=== PATIENT | male | born 1935 | race Caucasian/White ===

== ENCOUNTER 2016-11-07 05:44 | Inpatient (IN) | payer OTHER ==
--- NOTE | 2016-11-06 20:31 | GHP ---
[f rep st] PREOP HISTORY AND PHYSICAL DATE OF ADMISSION: 11/07/2016 PROBLEM: Severe left knee degenerative arthritis. HISTORY OF PRESENT ILLNESS: Jayant is an 81-year-old male who will be admitted for a left total knee arthroplasty with Dr. El at the [facility] on November 07, 2016. The patient has had progressive pain of the left knee for several years. Within the last few months, he has had an increase in pain as well as a sense of instability and buckling. The knee is sore with prolonged sitting or standing. He uses a crutch in his left hand because of poor balance. He has tried self-directed physical therapy exercises for the left knee in addition to anti-inflammatories, which have not helped. Because of his progressive pain and advanced arthritis, the patient has elected to proceed with a left total knee arthroplasty. 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 He also has peripheral neuropathy on the left side of his lower extremity. PAST MEDICAL HISTORY: Pertinent for hypercholesterolemia and hypertension. 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 Chronic oral antibiotic use for previous osteomyelitis. No history of DVT, PE, OK, CAD or hepatitis. No previous MRSA infection. CURRENT MEDICATIONS: Baclofen 10 mg, gabapentin 300 mg, metoprolol succinate ER 50 mg, simvastatin 40 mg, calcium, multivitamin, fish oil, and dicloxacillin 500 mg 4 times a day. ALLERGIES: He has no known drug allergies. SOCIAL HISTORY: The patient is . He is a former smoker. He is retired from [employer]. Occasional alcohol intake. FAMILY HISTORY: Pertinent for coronary artery disease and heart attacks. PHYSICAL EXAMINATION: GENERAL: He is a healthy-appearing 81-year-old male. VITAL SIGNS: Height 5 feet 8 inches tall, weight 210 pounds. BMI 31.9. HEENT : Head is normocephalic, atraumatic. Eyes are PERRLA. Conjunctivae and sclerae are clear. Mouth: He has good oral hygiene without any loose teeth. LUNGS: Clear. HEART: Regular rate and rhythm without gallops or rubs. He does have a grade 2/6 systolic murmur heard best at the right upper sternal border. EXTREMITIES: Pertinent findings are limited to the patient's left knee. He has valgus alignment, full knee extension, 105 degrees of flexion, pseudolaxity of the lateral collateral ligament. DIAGNOSTIC IMAGING: Recent x-rays taken of the patient's left knee shows advanced uaxv-wj-veay degenerative arthritis with increased subchondral sclerosis and peripheral osteophyte formation. IMPRESSION: On admission: 1. Advanced left knee degenerative arthritis. 2. Status post right total knee arthroplasty with a good result. 3. History of cervical spine fusion x2 with residual partial right-sided paralysis. 4. Treated hypercholesterolemia. 5. Chronic oral antibiotic use for previous infection. PLAN: The plan will be for the patient to undergo a left total knee arthroplasty with Dr. El at the [facility] on November 07, 2016. The surgery has been described to the patient including the risks, benefits, and expectations. He understands the risk of infection, nerve injury , or blood vessel injury. He also understands the risk of heart attack, DVT, PE or . All his questions have been answered. He consents to surgery here in the office today. /[id number]/MODL MTDD
[2016-11-07] MEDS ORDERED: TRANEXAMIC ACID 900 MG in NS 100 ML IV ONE (06:00)
[2016-11-07] MEDS ORDERED: ROPIVACAINE 0.2% 80 MG, EPINEPHrine 0.2 MG, KETOROLAC TROMETHAMINE 30 MG in BAG 0 ML IU ONE (06:00)
[2016-11-07] MEDS ORDERED: POVIDONE-IODINE 20 ML in SODIUM CL IRRIG SOLUTION 500 ML IRR ONE (06:00)
[2016-11-07] MEDS ORDERED: ceFAZolin 2 GM/DEXTROSE 100 ML IV ONE (06:02)
[2016-11-07] MEDS ORDERED: ACETAMINOPHEN 325 MG TAB PO ONE (06:02)
[2016-11-07] MEDS ORDERED: DEXAMETHASONE 4 MG/ML VIAL IVP ONE (06:02)
[2016-11-07] MEDS ORDERED: FAMOTIDINE 20 MG TAB PO ONE (06:02)
[2016-11-07] MEDS ORDERED: DEXAMETHASONE 4 MG/ML VIAL ONE ×2 (06:31→09:12)
[2016-11-07] MEDS ORDERED: CEFAZOLIN 2 GM/DEXTROSE/100 ML BAG IV ONE (06:31)
[2016-11-07] MEDS ORDERED: FAMOTIDINE 20 MG TAB ONE (06:31)
[2016-11-07] MEDS ORDERED: ACETAMINOPHEN 325 MG TAB ONE (06:31)
[2016-11-07] MEDS ORDERED: ceFAZolin 1 GM/5 ML SYR ONE ×2 (06:32→06:35)
[2016-11-07] MEDS ORDERED: VANCOMYCIN 1 GM VIAL ONE ×2 (06:32→06:35)
[2016-11-07] MEDS ORDERED: LIDOCAINE 1% 2 ML INJ ID PRN (06:43)
[2016-11-07] MEDS ORDERED: LR 1,000 ML IV ONE (06:43)
[2016-11-07 07:05] LABS: % IMMATURE GRANULYOCYTES 0.3 % (0.0-1.1); ABSOLUTE IMMATURE GRANULOCYTES 0.02 10^3/uL (0.00-0.10); ADD DIFF? NO; ADD MORPH? NO; ADD SCAN? NO; ATYPICAL LYMPHOCYTE FLAG 0 (0-99); FRAGMENT RBC FLAG 0 (0-99); HEMATOCRIT 35.7 % (40.0-51.0); HEMOGLOBIN 11.7 g/dL (13.7-17.5); LEFT SHIFT FLG 0 (0-99); LIPEMIA HEMOLYSIS FLAG 80 (0-99); MEAN CELL HEMOGLOBIN CONCENTR. 32.8 g/dL (32.4-36.7); MEAN CELL VOLUME 94.4 fL (81.5-99.8); MEAN PLATELET VOLUME 10.7 fL (8.7-11.7); PLATELET CLUMPS FLAG 0 (0-99); PLATELET COUNT 205 10^3/uL (150-400); RED BLOOD CELL COUNT 3.78 10^6/uL (4.40-6.38); RED CELL DISTRIBUTION WIDTH 13.2 % (11.5-15.2)
--- NOTE | 2016-11-07 07:08 | PDHPUP ---
History & Physical Update H&P update statement: This history and physical update is based on an assessment of the patient which was completed after admission or registration (within 24 hours), but prior to the surgery/procedure. H&P update: H&P reviewed & patient examined, no change in patient's condition since H&P completed
[2016-11-07] MEDS ORDERED: MIDAZOLAM 2 MG/2 ML VIAL ONE (07:10)
[2016-11-07] MEDS ORDERED: PROPOFOL/EMULSION 500 MG/50 ML BOTTLE IV ONE ×2 (07:14→08:31)
[2016-11-07] MEDS ORDERED: PROPOFOL 200 MG/20 ML VIAL ONE (07:15)
[2016-11-07] MEDS ORDERED: HYDROmorphONE/DILAUDID 2 MG/ML INJ ONE (07:47)
[2016-11-07] MEDS ORDERED: NALOXONE HCL 0.4 MG/ML INJ IVP PRN (08:33)
[2016-11-07] MEDS ORDERED: ONDANSETRON 4 MG/2 ML VIAL IVP PRN ×2 (08:33→09:19)
[2016-11-07] MEDS ORDERED: HYDROmorphONE/DILAUDID 1 MG/ML SYR IVP PRN ×2 (08:33)
[2016-11-07] MEDS ORDERED: LR 500 ML IV PRN (08:33)
[2016-11-07] MEDS ORDERED: fentaNYL 100 MCG/2 ML INJ IVP PRN ×2 (08:33)
[2016-11-07] MEDS ORDERED: MIDAZOLAM 2 MG/2 ML VIAL IVP ONE (08:38)
--- NOTE | 2016-11-07 08:38 | PDANEPAE ---
ANE History of Present Illness 87yo M for L TKA ANE Past Medical History - Cardiovascular History Hx Hypertension: Yes Hx Arrhythmias: No Hx Chest Pain: No Hx Coronary Artery / Peripheral Vascular Disease: No Hx CHF / Valvular Disease: No Hx Palpitations: No Cardiovascular History Comment: pcp monitors bp meds. hyperlipidemia - Pulmonary History Hx COPD: No Hx Asthma/Reactive Airway Disease: No Hx Recent Upper Respiratory Infection: No Hx Oxygen in Use at Home: No Hx Sleep Apnea: No Sleep Apnea Screening Result - Last Documented: Positive Pulmonary History Comment: suni positive- hx of using cpap but he has since stopped - Neurologic History Hx Cerebrovascular Accident: No Hx Seizures: No Hx Dementia: No Neurologic History Comment: paralysis to right side after spinal surgery. spinal surgery for numbness and tingling in left hand- when he woke up from anesthesia he was totally paralyzed on right side. neuropathy on left side from toes to armpit - Endocrine History Hx Diabetes: No - Renal History Hx Renal Disorders: Yes Renal History Comment: frequency and urgency- pt and requesting catheter. uti 2 weeks ago - Liver History Hx Hepatic Disorders: No - Neurological & Psychiatric Hx Hx Neurological and Psychiatric Disorders: No - Cancer History Hx Cancer: No - Congenital Disorder History Hx Congenital Disorders: No - GI History Hx Gastrointestinal Disorders: Yes Gastrointestinal History Comment: diarrhea uses probiotic. occ incontinence of bowels d/t paralysis - Other Health History Other Health History: wears glasses. bilateral hearing aides. hx of eczema- none currently. flu 2 weeks ago - Chronic Pain History Chronic Pain: Yes (left knee, wrist, right shoulder and low back pain) - Surgical History Prior Surgeries: c2 spinal surgery for calcium spur 08/2006. right tka 2009. herniated disc procedure after water slide accident ANE Review of Systems Review of systems is: negative - Exercise capacity Exercise capacity: limited by disability METS (RN): 4 METS ANE Patient History - Allergies Allergies/Adverse Reactions: No Known Allergies Allergy (Verified 11/05/16 12:24) - Home Medications Home Medications: Aspirin [Aspirin 81mg (*)] 81 mg PO DAILY 10/31/16 [Last Taken 11/05/16] Baclofen [Baclofen 10 mg (*)] 10 mg PO BID 10/31/16 [Last Taken 11/06/16 23:00] Dicloxacillin Sodium [Dynapen 500 MG (*)] 500 mg PO Q6H 10/31/16 [Last Taken 04/14 05:00] Gabapentin [Neurontin 300 MG (*)] 300 mg PO BID 10/31/16 [Last Taken 11/06/16 23 :00] Metoprolol Succinate Xr [Toprol Xl 50 mg (*)] 50 mg PO DAILY 10/31/16 [Last Taken 11/06/16 11:00] Simvastatin [Zocor] 40 mg PO DAILY 10/31/16 [Last Taken 11/06/16 11:00] - NPO status NPO Since - Liquids (Date): 11/06/16 NPO Since - Liquids (Time): 20:00 NPO Since - Solids (Date): 11/06/16 NPO Since - Solids (Time): 22:30 - Smoking Hx Smoking Status: Former smoker - Family Anes Hx Family Hx Anesthesia Complications: none ANE Labs/Vital Signs - Labs Result Diagrams: 11/07/16 06:55 - Vital Signs Blood Pressure: 132/73 Heart Rate: 66 Respiratory Rate: 16 O2 Sat (%): 90 Height: 167.64 cm Weight: 85.275 kg ANE Physical Exam - Airway Neck exam: decreased ROM Mallampati Score: Class 2 Mouth exam: normal dental/mouth exam - Pulmonary Pulmonary: clear to auscultation - Cardiovascular Cardiovascular: regular rate and rhythym - ASA Status ASA Status: III ANE Anesthesia Plan Anesthesia Plan: spinal Regional Anesthesia: single shot NB, adductor canal FNB
--- NOTE | 2016-11-07 09:11 | POSTOPPROG ---
Post Op Note Date of Operation: 11/07/16 Surgeon: Omar El Orthopedic Tech: León Bentley Anesthesiologist: Collette Anesthesia: GET(General Endotracheal) Post-op Diagnosis: Left knee severe degenerative arthritis. Procedure: Left total knee arthroplasty. Inf/Abcess present in the surg proc area at time of surgery?: No EBL: 50-100 (Adductor canal block.)
[2016-11-07] MEDS ORDERED: epHEDrine SULFATE 10 MG/ML SYR ONE (09:12)
[2016-11-07] MEDS ORDERED: ONDANSETRON 4 MG/2 ML VIAL ONE (09:13)
[2016-11-07] MEDS ORDERED: PHARMACY PAIN CONSULT 1 EA MISC PRN (09:19)
[2016-11-07] MEDS ORDERED: oxyCODONE IR 5 MG TAB PO PRN (09:19)
[2016-11-07] MEDS ORDERED: POLYETHYLENE GLYCOL 3350 17 GM PKT PO PRN (09:19)
[2016-11-07] MEDS ORDERED: DIPHENOXYLATE/ATROPINE LOMOTIL 1 TAB PO PRN (09:19)
[2016-11-07] MEDS ORDERED: NS 500 ML IV PRN (09:19)
[2016-11-07] MEDS ORDERED: KETOROLAC 30 MG/1 ML SDV IVP PRN (09:19)
[2016-11-07] MEDS ORDERED: BISACODYL 10 MG SUPP PR PRN (09:19)
[2016-11-07] MEDS ORDERED: MAGNESIUM HYDROXIDE 30 ML UDCUP PO PRN (09:19)
[2016-11-07] MEDS ORDERED: TEMAZEPAM 15 MG CAP PO PRN (09:19)
[2016-11-07] MEDS ORDERED: PROMETHAZINE HCL 25 MG SUPPR PR PRN (09:19)
[2016-11-07] MEDS ORDERED: LACTULOSE 20 GM/30 ML UDCUP PO PRN (09:19)
[2016-11-07] MEDS ORDERED: PROMETHAZINE HCL 25 MG/ML INJ IVP PRN (09:19)
[2016-11-07] MEDS ORDERED: diphenhydrAMINE 25 MG CAP PO PRN (09:19)
[2016-11-07] MEDS ORDERED: traMADol 50 MG TAB PO PRN (09:19)
[2016-11-07] MEDS ORDERED: METOCLOPRAMIDE 10 MG/2 ML VIAL IVP PRN (09:19)
[2016-11-07] MEDS ORDERED: ONDANSETRON DISINTEGRATING 4 MG TAB PO PRN (09:19)
[2016-11-07] MEDS ORDERED: CYCLOBENZAPRINE 10 MG TAB PO PRN (09:19)
[2016-11-07] MEDS ORDERED: LR 1,000 ML IV SCH (09:30)
[2016-11-07] MEDS: DICLOXACILLIN NA 500 MG CAP PO SCH ×2 (12:02→17:30)
[2016-11-07] MEDS: ATORVASTATIN CALCIUM 20 MG TAB PO SCH (12:02)
[2016-11-07] MEDS: ACETAMINOPHEN 325 MG TAB PO SCH ×2 (12:02→17:30)
[2016-11-07] MEDS: METOPROLOL SUCCINATE XR 50 MG TAB PO SCH (12:03)
[2016-11-07] MEDS: ceFAZolin 2 GM/DEXTROSE 100 ML IV SCH ×2 (14:39→21:11)
[2016-11-07] MEDS: TRANEXAMIC ACID 650 MG TAB PO SCH (17:30)
--- NOTE | 2016-11-07 18:14 | GOP ---
[f rep st] OPERATIVE REPORT DATE OF OPERATION: 11/07/2016 SURGEON: Omar El MD MANAGER PHARMACEUTICAL: 1. Marcello Bejarano P.A.-C. 2. Sebastian Bentley CFA. ANESTHESIA: General. ANESTHESIOLOGIST: Dr. Martin Murdock. PREOPERATIVE DIAGNOSIS: Left knee severe degenerative arthritis with valgus deformity. POSTOPERATIVE DIAGNOSIS: Left knee severe degenerative arthritis with valgus deformity. PROCEDURE PERFORMED: Left total knee arthroplasty, cemented, Gould and Nephew Journey II, posterior stabilized. FINDINGS: ESTIMATED BLOOD LOSS: Following placement of the tourniquet, was about 100 mL. The sponge and needle count were correct on 2 occasions. He was awakened from anesthesia, transferred to his hospital [facility] and taken to the PACU in satisfa ctory condition. There were no intraoperative complications. In the PACU, for additional postoperative pain control, Dr. Murdock performed an adductor canal block. Marcello Bejarano and Sebastian Bentley acted as surgical assistants. Their assistance was a medical rosa bob. DESCRIPTION OF PROCEDURE: The patient was given 2 g of preoperative IV Ancef within 60 minutes of s urgery. He also received IV tranexamic acid at a dose of 10 mg/kg. He was placed on the operating room table and Dr. Murdock attempted a spinal anesthetic, but was unsuccessful. He was then placed mike pine and given general anesthesia. He wore a YVETTE stocking and SCD on the nonoperative leg. A bolst er was placed under the left hip to prevent excessive external rotation. The left lower extremity w as prepped with ChloraPrep from the upper thigh tourniquet to the tips of the toes. It was draped f ree using sterile sheets, stockinette, and Ioban plastic adhesive drape. The lower leg was wrapped with compressive Coban. The leg was exsanguinated with elevation and a 6-inch compressive wrap, and the pneumatic tourniquet was inflated to 250 mmHg. The World Health Organization time-out was perf ormed to verify the correct patient identity and the correct surgical side and site. The Shayan ti me-out was also performed. The DeMayo leg holding device was sterilely attached to the operating ro om table and used throughout the procedure to help position the knee. A straight midline incision was made centered on the patella. Subcutaneous tissues were sharply div ided and hemostasis was obtained using electrocautery. A medial subcutaneous flap was developed, an d the capsule and synovium were opened in medial parapatellar fashion. Extensive degenerative rivera es were present in all 3 compartments. The medial capsule and periosteum were elevated off the rim of the medial tibial plateau all the way around to the posteromedial corner. His medial collateral ligament was released enough to balance the medial side of the knee. In order to improve exposure, his patella was prepared first. The original thickness of the patella was measured. Peripheral osteophytes were removed. I cut a f lat surface on the back of the patella. He was sized for a 38 mm resurfacing component. I removed enough bone from the patella such that the remaining bone plus the thickness of the patellar compone nt recreated the original thickness of the patella. His composite thickness was 24 mm. The intramedullary alignment guide system was used to set up the distal femoral cut. The distal fem ur was cut in 5 degrees of valgus. I made a +2 mm cut on the distal femur. The sizing jig was used to determine proper femoral sizing. He was a true size 5 without shifting the cutting block. The 5 in 1 cutting block was applied, and the anterior and posterior condylar cuts and chamfer cuts were made. The final jig was used to remove the central portion of the distal femur to accommodate the posterior stabilized femoral component. I was careful to determine proper rotation by referencing o ff Whitesides line. Each cut was checked for accuracy before and after it was made. The femur was sized for a size 5 posterior stabilized component. The trial component was tapped securely into deisy ce and was a good fit. Next, the tibia was prepared. The proximal tibial cut was made using the extramedullary alignment g uide system. The cut was made in a few degrees of posterior slope. I was careful to achieve proper varus and valgus alignment and proper rotation. The posterior compartment was cleared of meniscal remnants. Osteophytes were removed from the back of the femoral condyles. I checked the flexion an d extension gaps, and they were equal, balanced and rectangular. The tibia was sized for a size 5 c omponent. With the trial components in place, I selected a 9 mm polyethylene posterior stabilized t ibial insert. The knee came to full extension and flexed to 125 degrees. There was no overstuffing in flexion. The collateral ligaments were stable and balanced in 90 degrees of flexion and full ex tension. The trial patellar button was applied and tracking was checked. Tracking was excellent wi thout any digital pressure. 40 mL of the joint anesthetic cocktail were injected into the posterior capsule, the periarticular structures, the quadriceps muscle and tendon areas, and the subcutaneous tissues along the skin edges. A second dose of IV tranexamic acid was given at a dose of 10 mg/kg. The surfaces were prepared for cementing. They were carefully cleaned with the pulsating lavage irr igation and thoroughly dried. The CarboJet device was used to blow dry the cancellous surfaces. A double batch of high viscosity methylmethacrylate cement with 2 g of powdered vancomycin added was m ixed. While it was still in a semi liquid state, all 3 components were cemented in place. Excess c ement was removed before it hardened. The 9 mm trial tibial insert was re-tried and was the proper thickness. The actual component was inserted and locked into place. The knee was thoroughly irriga yvette one final time with a dilute Betadine solution. The tourniquet was deflated. Total tourniquet time was 49 minutes. The vastus medialis portion of the extensor mechanism was repaired with several interrupted [id number] #2 FiberWire sutures. The capsule and synovium were closed first with multiple interrupted [id number] 0 PDS sutures, followed by a running #2 barbed Ethicon Stratafix PDO suture. Subcutaneous tissues were closed with a running 0 barbed Ethicon Stratafix Monoderm suture. The skin was closed with a running 3-0 barbe d Ethicon Stratafix Monoderm subcuticular suture. The skin was sealed with half-inch Steri-Strips. The wound was covered with Xeroform gauze and flat 4x4s, and the knee was wrapped with a Kerlix and 6-inch compressive wrap. A long-leg YVETTE stocking and SCD were applied followed by the cooling treasure ce. The patient wore a stocking and SCD on the opposite leg during the procedure. I used a size 5 cemented Gould and Nephew Oxinium posterior stabilized femoral component, a size 5 c emented tibial base plate, a 9 mm posterior stabilized tibial insert and a 38 mm cemented round all- polyethylene resurfacing patellar component. /[id number]/MODL
[2016-11-07] MEDS ORDERED: BACLOFEN 10 MG TAB PO SCH (21:00)
[2016-11-07] MEDS ORDERED: GABAPENTIN 300 MG CAP PO SCH (21:00)
[2016-11-07] MEDS: GABAPENTIN 300 MG CAP PO SCH (21:10)
[2016-11-07] MEDS: BACLOFEN 10 MG TAB PO SCH (21:10)
[2016-11-07] MEDS: ASPIRIN 325 MG TAB PO SCH (21:11)
[2016-11-07] MEDS: FAMOTIDINE 20 MG TAB PO SCH (21:11)
[2016-11-07] MEDS: SENNOSIDES/DOCUSATE SODIUM TAB PO SCH (21:13)
[2016-11-08] MEDS: BACLOFEN 10 MG TAB PO SCH ×3 (00:11→22:05)
[2016-11-08] MEDS: ACETAMINOPHEN 325 MG TAB PO SCH ×4 (00:11→17:50)
[2016-11-08] MEDS: GABAPENTIN 300 MG CAP PO SCH ×3 (00:11→22:05)
[2016-11-08] MEDS: TRANEXAMIC ACID 650 MG TAB PO SCH ×2 (00:11→09:00)
[2016-11-08] MEDS: DICLOXACILLIN NA 500 MG CAP PO SCH ×4 (00:11→17:50)
[2016-11-08 04:51] LABS: HEMATOCRIT 31.3 % (40.0-51.0); HEMOGLOBIN 10.3 g/dL (13.7-17.5)
--- NOTE | 2016-11-08 07:51 | SOAPPROG ---
SOAP Progress Note Assessment/Plan: Assessment: Awake and alert. Minimal pain. He has been up and walking in the room. His dressing is dry. H&H is good. Films look good. Plan: Standing long-leg alignment film today. Continue physical therapy. Discharge later today when cleared by physical therapy. 11/08/16 07:49 Objective: Vital Signs Temp Pulse Resp BP Pulse Ox 37.1 C 79 14 138/59 H 92 11/08/16 07:17 11/08/16 07:17 11/08/16 07:17 11/08/16 07:17 11/08/16 07:17 Laboratory Results 11/08/16 04:29 11/07/16 11/08/16 11/09/16 05:59 05:59 05:59 Intake Total 600 Output Total 345 Balance 255 ICD10 Worksheet Patient Problems: Problems Problem Status Onset Osteoarthritis of left knee Acute
--- NOTE | 2016-11-08 07:55 | PDIAF ---
- Diagnosis Diagnosis: left knee OA Code Status: Full Code - Medication Management Discharge Medications: Medications to Continue on Transfer Baclofen [Baclofen 10 mg (*)] 10 mg PO BID 10/31/16 [Last Taken 11/06/16 23:00] Dicloxacillin Sodium [Dynapen 500 MG (*)] 500 mg PO Q6H 10/31/16 [Last Taken 04/14 05:00] Gabapentin [Neurontin 300 MG (*)] 300 mg PO BID 10/31/16 [Last Taken 11/06/16 23 :00] Metoprolol Succinate Xr [Toprol Xl 50 mg (*)] 50 mg PO DAILY 10/31/16 [Last Taken 11/06/16 11:00] Simvastatin [Zocor] 40 mg PO DAILY 10/31/16 [Last Taken 11/06/16 11:00] Acetaminophen [Tylenol 325mg (*)] 650 mg PO Q6HRS #0 tab 11/08/16 [Last Taken Unknown] Aspirin [Aspirin 325 mg (*)] 325 mg PO DAILY #21 tab 11/08/16 [Last Taken Unknown] Ferrous Sulfate [Slow Fe 140 MG (*)] 140 mg PO DAILY #30 tab.er 11/08/16 [Last Taken Unknown] Ondansetron Odt [Zofran Odt 4 mg (*)] 4 mg PO Q4HRS PRN #0 tab 11/08/16 [Last Taken Unknown] oxyCODONE IR [Oxycodone Ir (*)] 5 - 10 mg PO Q3HRS PRN #0 tab 11/08/16 [Last Taken Unknown] traMADol [Ultram 50 mg (*)] 50 mg PO Q6HRS PRN #0 tab 11/08/16 [Last Taken Unknown] Discharge Medications: Refer to the Discharge Home Medication list for PRN reason. - Orders Services needed: Home Care, Physical Therapy Home Care Face to Face: I certify that this patient was under my care and that I had the required [id number] encounter meeting the encounter requirements on the discharge day. My findings support the fact that the patient is homebound as defined in CMS Chapter 7 Medicare Benefits Manual 30.1.1, The condition of the patient is such that there exists a normal inability to leave home and consequently, leaving home would require a considerable and taxing effort. Diet Recommendation: no restrictions on diet Diet Texture: Regular Texture Diet Bosch: Not applicable Grant Stockings Discontinue Date: 1 week Wound Care Instructions: keep clean and dry. You may shower. Equipment: Zero knee while in bed. - Follow Up Care Current Providers and Referrals: Dontae Ferguson MD [Primary Care Provider] - Omar El MD [Medical Doctor] - follow up in 10 days
[2016-11-08] MEDS: ASPIRIN 325 MG TAB PO SCH (09:02)
[2016-11-08] MEDS: METOPROLOL SUCCINATE XR 50 MG TAB PO SCH (09:02)
[2016-11-08] MEDS: SENNOSIDES/DOCUSATE SODIUM TAB PO SCH ×2 (09:02→22:06)
[2016-11-08] MEDS: FERROUS SULFATE 140 MG TAB.ER PO SCH (09:02)
[2016-11-08] MEDS: ATORVASTATIN CALCIUM 20 MG TAB PO SCH (09:03)
[2016-11-08] MEDS: FAMOTIDINE 20 MG TAB PO SCH ×2 (09:08→22:05)
[2016-11-08] MEDS ORDERED: NS 500 ML IV PRN (11:43)
--- NOTE | 2016-11-08 15:42 | GDS ---
[f rep st] DISCHARGE SUMMARY ADMITTING DIAGNOSIS: Left knee severe degenerative arthritis. DISCHARGE DIAGNOSIS: Left knee severe degenerative arthritis. OPERATION PERFORMED: On 11/07/2016, left total knee arthroplasty. POSTOPERATIVE COMPLICATIONS: None. CONDITION ON DISCHARGE: Improved. DESCRIPTION OF HOSPITAL COURSE: The patient was admitted to the hospital on the morning of surgery. His admission H and H were 11.7 and 35.7, and platelet count was 205,000. The same day, under general anesthesia and adductor canal block, he underwent a left total knee arthroplasty. Postoperatively, he was treated with multimodal DVT prophylaxis, including aspirin. On the first postoperative day, his hemoglobin and hematocrit were 10.3 and 31.3. He was seen by Physical Therapy. His initial progress was slow and he needed to stay an additional day in the hospital. By the time of discharge, he was afebrile and was independent walking. DISPOSITION: The patient is discharged to his home. DISCHARGE INSTRUCTIONS: He will have home physical therapy. I will see him back in the office in 10 days. Continue aspirin 325 mg p.o. daily for 21 days. Continue YVETTE stockings for 1 week. He may weight bear as tolerated on the left. Call for any problems. /[id number]/MODL MTDD
[2016-11-09] MEDS: DICLOXACILLIN NA 500 MG CAP PO SCH ×3 (00:01→12:58)
[2016-11-09] MEDS: ACETAMINOPHEN 325 MG TAB PO SCH ×3 (00:01→12:58)
[2016-11-09 03:04] VITALS: RESP 16
[2016-11-09 07:55] VITALS: BP 133/69; PULSE 77; TEMP 98.6; O2SAT 95
[2016-11-09] MEDS: FAMOTIDINE 20 MG TAB PO SCH (09:19)
[2016-11-09] MEDS: FERROUS SULFATE 140 MG TAB.ER PO SCH (09:19)
[2016-11-09] MEDS: ASPIRIN 325 MG TAB PO SCH (09:19)
[2016-11-09] MEDS: METOPROLOL SUCCINATE XR 50 MG TAB PO SCH ×2 (09:20→09:26)
[2016-11-09] MEDS: ATORVASTATIN CALCIUM 20 MG TAB PO SCH (09:21)
[2016-11-09] MEDS: SENNOSIDES/DOCUSATE SODIUM TAB PO SCH (09:24)
--- NOTE | 2016-11-09 13:45 | SOAPPROG ---
SOAP Progress Note Assessment/Plan: Assessment: POD #2, s/p L TKA Awake, alert, afebrile. H/H ok. Dressing clean and dry. Mild to no pain. OOB w/ PT. Plan: D/c to home with home PT. ASA 325mg daily x 21 days. F/u in office as scheduled. 11/09/16 13:44 Objective: Vital Signs Temp Pulse Resp BP Pulse Ox 37.0 C 77 16 133/69 H 95 11/09/16 07:53 11/09/16 07:53 11/09/16 07:53 11/09/16 07:53 11/09/16 07:53 Laboratory Results 11/08/16 04:29 11/08/16 11/09/16 11/10/16 05:59 05:59 05:59 Intake Total 600 350 Output Total 345 1050 250 Balance 251 -700 -250 ICD10 Worksheet Patient Problems: Problems Problem Status Onset Osteoarthritis of left knee Acute
== END 2016-11-09 14:41 | disposition home health service (06) | DRG 470 ==
LOC: F3N 05:44
PROVIDERS: ADMIT Orthopaedic Surgery; ATTEND Orthopaedic Surgery
PROC: 0SRD0J9 Replacement of Left Knee Joint with Synthetic Substitute, Cemented, Open Approach (ICD-10-PCS; principal; 2016-11-07 07:15)
DX: M17.12 Unilateral primary osteoarthritis, left knee (principal); G82.20 Paraplegia, unspecified; M21.062 Valgus deformity, not elsewhere classified, left knee; E78.00 Pure hypercholesterolemia, unspecified; I10 Essential (primary) hypertension; G60.8 Other hereditary and idiopathic neuropathies; Z96.651 Presence of right artificial knee joint; Z98.1 Arthrodesis status
CPT/HCPCS: 97116-GP; 97161-GP; 97166-GO; 97535-GO; C1713; G8978-GP-CJ; G8979-GP-CI; G8980-GP-CJ; G8987-GO-CK; G8988-GO-CI; J0171; J0690; J1100; J1170; J1885; J2250; J2405; J2704; J2795; J3370

== ENCOUNTER 2016-11-13 13:51 | Observation (INO) | payer OTHER ==
[2016-11-13] MEDS ORDERED: NS 1,000 ML IV ONE (13:55)
--- NOTE | 2016-11-13 13:58 | CPEKG ---
Heart Rate: 61 RR Interval: 984 P-R Interval: 168 QRSD Interval: 118 QT Interval: 432 QTC Interval: 435 P [place]: 60 QRS [place]: -43 T Wave [place]: 64 EKG Severity - ABNORMAL ECG - EKG Impression: SINUS RHYTHM EKG Impression: NONSPECIFIC IVCD WITH LAD Electronically Signed By: Rolo Flores 14-Nov-2016 07:48:40
--- NOTE | 2016-11-13 14:00 | EDPHY ---
H & P Stated Complaint: multiple syncopes HPI/ROS: HPI CHIEF COMPLAINT: Syncope x2 HISTORY OF PRESENT ILLNESS: This patient 81-year-old male, presents emergency room by EMS after he had a syncopal episode on the toilet. His witnessed this. Positive LOC. She called 911. When EMS arrived they found him sitting on the toilet diaphoretic and then he proceeded to have another syncopal episode where he was unconscious for 10-15 seconds. Patient reports that he woke up this morning feeling fatigued and weak all over. Denies chest pain or shortness of breath. States he recently had left knee surgery by Dr. El. No history of DVT or PE. No history of IL. He denies chest pain or shortness of breath. Upon arrival here in the emergency room he is mentating appropriately. His vital signs are stable. He tells me his only complaint is global weakness. Of note upon arrival vital signs are stable however room air saturation 85%. 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 Past Surgical History: Previous right knee surgery, left knee surgery this last week Social History: Denies daily use of drugs alcohol tobacco products. Family History: Noncontributory ROS REVIEW OF SYSTEMS: A comprehensive 10 point review of systems is otherwise negative aside from elements mentioned in the history of present illness. Exam Constitutional appears well nontoxic, triage nursing summary reviewed, vital signs reviewed, awake/alert. Eyes normal conjunctivae and sclera, EOMI, PERRLA. HENT normal inspection, atraumatic, moist mucus membranes, no epistaxis, neck supple/ no meningismus, no raccoon eyes. Respiratory clear to auscultation bilaterally, normal breath sounds, no respiratory distress, no wheezing. Cardiovascular rate normal, regular rhythm, no murmur, no edema, distal pulses normal. Gastrointestinal soft, non-tender, no rebound, no guarding, normal bowel sounds, no distension, no pulsatile mass. Genitourinary no CVA tenderness. Musculoskeletal left leg: Left knee recent incision, no signs of infection. no midline vertebral tenderness, full range of motion, no calf swelling, no tenderness of extremities, no meningismus, good pulses, neurovascularly intact. Skin pink, warm, & dry, no rash, skin atraumatic. Neurologic awake, alert and oriented x 3, AAOx3, moves all 4 extremities equally, motor intact, sensory intact, CN II-XII intact, normal cerebellar, normal vision, normal speech. Psychiatric normal mood/affect. Heme/Lymph/Immune no lymphadenopathy. Differential Diagnosis: Includes but is not limited to in a particular order pulmonary embolism, ACS, cardiac arrhythmia, sepsis, dehydration, vasovagal syncope Medical Decision Making: Plan for this patient he is brought into ER room 2. 2 IVs will be established patient received a fluid bolus, he will have an EKG full bus monitor, D-dimer. Due to his recent surgery, hypoxia, syncope he will need a CT angiogram of his chest rule out pulmonary embolism versus dissection. Re-evaluation: EKG interpretation by me on record in [facility] [facility] system. Time of EKG 1356, this is sinus rhythm rate of 61 hyperacute T-waves seen in the precordial leads , ST depression seen in V4 V5 V6. Very subtle ST elevation in v2. No old EKG to compare this to. EKG interpretation by me on record in [facility] system. Impression time of EKG 1432 this is sinus rhythm rate of 61, no acute ischemic change. 1517: Patient remained stable. Hemodynamically. No chest pain or shortness of breath. Blood work has been reviewed positive D-dimer. Elevated BNP. Negative troponin. No chest pain or shortness of breath at this time. Patient is back from CT angiogram of the chest to rule out pulmonary embolism. Patient need to be admitted due to [address] angiogram results. 1552: Patient remained stable no acute distress. No chest pain shortness of breath. CT scan of the chest with IV contrast angiogram The results of the study are negative for pulmonary embolism however there is visible pancreatic tail mass which I will update the patient on. This will need further workup.. The study was read by Dr. Flores. I viewed the images myself on the PACS system. 1552: Spoke with Dr. Palma who accepts the admission. Reason for admission is syncope x2 with recent surgery. Troponin negative. The ST depression seen on the 1st EKG in V5 V6 has improved on his 2nd EKG. He has no chest pain. Hemodynamically stable. Will need to be admitted the hospital for syncope x2 and further evaluation of his pancreatic tail mass. I have updated the patient about this. Source: Patient - Personal History Current Tetanus/Diphtheria Vaccine: Unsure Current Tetanus Diphtheria and Acellular Pertussis (TDAP): Unsure - Medical/Surgical History Hx Asthma: No Hx Chronic Respiratory Disease: No Hx Diabetes: No Hx Cardiac Disease: No Hx Renal Disease: No Hx Cirrhosis: No Hx Alcoholism: No Hx HIV/AIDS: No Hx Splenectomy or Spleen Trauma: No Other PMH: Cervical surgery w/resulting R side paralysis, LLE neuropathy, high chol, HTN, former smoker, sl apnea, R TKA 2010, frequency/urgency urination - Social History Smoking Status: Former smoker Constitutional: Initial Vital Signs Temperature (C) 36.4 C 11/13/16 13:54 Heart Rate 63 11/13/16 13:54 Respiratory Rate 15 11/13/16 13:54 Blood Pressure 114/69 11/13/16 13:54 O2 Sat (%) 91 L 11/13/16 13:54 O2 Delivery Mode Nasal Cannula O2 (L/minute) 2 Allergies/Adverse Reactions: No Known Allergies Allergy (Verified 11/13/16 13:53) Home Medications: Medication Instructions Recorded Baclofen [Baclofen 10 mg (*)] 10 mg PO BID@1700,2300 10/31/16 Dicloxacillin Sodium [Dynapen 500 500 mg PO Q6H 10/31/16 MG (*)] Gabapentin [Neurontin 300 MG (*)] 300 mg PO DAILY@1700 10/31/16 Metoprolol Succinate Xr [Toprol Xl 50 mg PO DAILY@1200 10/31/16 50 mg (*)] Simvastatin [Zocor] 40 mg PO DAILY@1200 10/31/16 Acetaminophen [Tylenol 325mg (*)] 650 mg PO Q6HRS PRN 11/13/16 Aspirin [Aspirin 325 mg (*)] 325 mg PO HS 11/13/16 Ferrous Sulfate [Ferrous Sulf 325 650 mg PO DAILY@1200 11/13/16 MG (*)] Gabapentin [Neurontin 300 MG (*)] 600 mg PO DAILY@2300 11/13/16 Herbals/Supplements -Info Only 1 ea PO DAILY 11/13/16 Medical Decision Making - Data Points Laboratory Results: Laboratory Results 11/13/16 14:06 11/13/16 14:06 Medications Given: Discontinued Medications Sodium Chloride (Ns) 1,000 mls @ 0 mls/hr IV ONCE ONE; Wide Open PRN Reason: Protocol Stop: 11/13/16 13:56 Last Admin: 11/13/16 14:20 Dose: 1,000 mls Departure - Departure Disposition: [facility] Inpatient Acute Clinical Impression: Pancreatic mass Syncope Qualifiers: Syncope type: unspecified Qualified Code(s): R55 - Syncope and collapse Condition: Fair
[2016-11-13 14:15] LABS: % IMMATURE GRANULYOCYTES 0.5 % (0.0-1.1); ABSOLUTE IMMATURE GRANULOCYTES 0.04 10^3/uL (0.00-0.10); ADD DIFF? NO; ADD MORPH? NO; ADD SCAN? NO; ATYPICAL LYMPHOCYTE FLAG 0 (0-99); FRAGMENT RBC FLAG 0 (0-99); LEFT SHIFT FLG 0 (0-99); LIPEMIA HEMOLYSIS FLAG 80 (0-99); MEAN CELL HEMOGLOBIN 31.4 pg (27.9-34.1); MEAN CELL HEMOGLOBIN CONCENTR. 33.3 g/dL (32.4-36.7); MEAN CELL VOLUME 94.3 fL (81.5-99.8); MEAN PLATELET VOLUME 10.3 fL (8.7-11.7); PLATELET CLUMPS FLAG 0 (0-99); PLATELET COUNT 243 10^3/uL (150-400); RED BLOOD CELL COUNT 3.18 10^6/uL (4.40-6.38); RED CELL DISTRIBUTION WIDTH 12.9 % (11.5-15.2)
[2016-11-13] MEDS ORDERED: IOPAMIDOL (ISOVUE 370) 100 ML BTL IV ONE (14:15)
[2016-11-13 14:22] LABS: INR 1.23 (0.83-1.16); PROTIME(PATIENT) 15.5 SEC (12.0-15.0)
[2016-11-13 14:23] LABS: APTT 22.7 SEC (23.0-38.0)
[2016-11-13 14:25] LABS: ALANINE AMINOTRANSFERASE 45 IU/L (21-72); ALBUMIN 3.2 g/dL (3.5-5.0); ALKALINE PHOSPHATASE 71 IU/L (38-126); ANION GAP 9 mEq/L (8-16); ASPARTATE AMINOTRANSFERASE 30 IU/L (17-59); BILIRUBIN,TOTAL 0.7 mg/dL (0.1-1.4); BILIRUBIN-CONJUGATED 0.3 mg/dL (0.0-0.5); BILIRUBIN-UNCONJUGATED 0.4 mg/dL (0.0-1.1); CALCIUM 8.4 mg/dL (8.5-10.4); CARBON DIOXIDE 22 mEq/l (22-31); CHLORIDE 103 mEq/L (97-110); CREATININE 1.1 mg/dL (0.7-1.3); GLOMERULAR FILTRATION RATE > 60; GLUCOSE 119 mg/dL (70-100); POTASSIUM 4.3 mEq/L (3.5-5.2); SODIUM 134 mEq/L (134-144); TOTAL PROTEIN 5.9 g/dL (6.3-8.2)
[2016-11-13 14:37] LABS: CREATINE KINASE-MB FRACTION 0.24 ng/mL (0-3.19); TROPONIN I < 0.012 ng/mL (0-0.034)
[2016-11-13] MEDS ORDERED: ONDANSETRON 4 MG/2 ML VIAL IVP PRN (16:08)
[2016-11-13] MEDS ORDERED: ACETAMINOPHEN 325 MG TAB PO PRN ×2 (16:08→17:00)
[2016-11-13] MEDS ORDERED: ONDANSETRON DISINTEGRATING 4 MG TAB PO PRN (16:08)
[2016-11-13] MEDS ORDERED: GABAPENTIN 300 MG CAP PO SCH ×2 (17:00→23:00)
--- NOTE | 2016-11-13 17:47 | GHP ---
[f rep st] HISTORY AND PHYSICAL DATE OF ADMISSION: 11/13/2016 CHIEF COMPLAINT: Syncope. HISTORY OF PRESENT ILLNESS: The patient is a pleasant 81-year-old male with past medical history including hypertension, hyperlipidemia, right-sided partial paralysis secondary to cervical surgery presenting with several episodes of syncope today. He underwent left TKA by Dr. El last Saturday, on November 07. He states that he has been doing well as far as recovery. He has been doing PT without issue. He has not been eating or drinking as much as he normally does. Per he rarely drinks that much water. Today, he was on the toilet, had already urinated and had a small bowel movement and passed out. propped him up against the shower. He was out for approximately 1 minute and this happened 3 times. He was very white and sweaty per her report. He felt faint prior to but denies any chest pain, shortness of breath or palpitations. He denies chest pain or shortness of breath at baseline. No PND , orthopnea or swelling, except for his knee. He has not been taking any pain medications due to his neuropathy. Denies fevers, chills or sweats. No nausea , vomiting, diarrhea. He does have a history of a murmur. REVIEW OF SYSTEMS: I completed a 10-point review of systems, negative except as noted in HPI. 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 PAST SURGICAL HISTORY: Right TKA, left TKA November 07, 2016, bone spur T4 complicated by right-sided paralysis. FAMILY HISTORY: Mother at age 90. Father had an accident. No coronary artery disease or stroke. ALLERGIES: No known drug allergies. HOME MEDICATIONS: Baclofen, gabapentin, metoprolol, simvastatin, calcium, multivitamin, fish oil, dicloxacillin 500 mg q.i.d. SOCIAL HISTORY: He is . Lives in [place]. His is a former nurse. Former smoker. Retired from [employer]. No alcohol or illicits. PHYSICAL EXAM: VITAL SIGNS: Temperature 36.4, blood pressure 114/69, heart rate in the 60s to 70s, respiration 15, 91% on 1 L. GENERAL: male, lying in bed, no acute distress. Tired appearing. HEENT: PERRLA. Mildly dry mucous membranes. CV: Regular rate and rhythm. He does have a 2/6 murmur right upper sternal border. No lower extremity edema. LUNGS: Clear to auscultation bilaterally. ABDOMEN: Soft, nontender, nondistended. Positive bowel sounds. : No suprapubic tenderness. MUSCULOSKELETAL: Moving all 4 extremities. Left knee surgical incision is dry, clean, and intact. Patient did not want me to take off the dressing, but there is no surrounding erythema or pain. NEURO: 2 through 12 intact. PSYCH: Alert and oriented x3. LABS: WBC is 8, hemoglobin 10, hematocrit 30, platelets are 243, INR is 1.2. D -dimer is 3.3, PT is 15. UA is pending. CTA, no PE. There is 3.2 pancreatic tail mass highly suspicious for malignancy. Indeterminate lucent right 3rd rib lesion. Nonspecific mild prominence of subcarinal lymph node. Peribronchial thickening. Coronary artery atherosclerosis. EKG is personally reviewed by me. Nonspecific IVCD. He had some ST depression in V5, V6. Prominent ST but non-elevated. Sodium 131, potassium 4.2, chloride 103, carbon dioxide 22, BUN 19, creatinine 1.1 (at baseline). Glucose 119, calcium 8.4, total protein 5.9, albumin 3.2, troponin less than 0.012. BNP is 521, lipase 37. ASSESSMENT AND PLAN: 1. Syncope: Differential includes arrhythmia, pulmonary embolism, dehydration , vasovagal with micturition. Initial troponin and EKG were negative for ischemia. We will repeat both of these, monitor on telemetry in the PCU. Check orthostatics, check a UA. Patient has a known murmur. Can consider echocardiogram but this can also be done as an outpatient. Infection also possibility, but knee does not look infected. UA pending. 2. Recent left total knee arthroplasty: Healing well. Performing PT at home. Continue full-dose aspirin. 3. History of chronic osteomyelitis: Will continue his penicillin. 4. Neuropathy: Continue gabapentin. 5. Benign prostatic hyperplasia: Hold tamsulosin with syncope. Monitor blood pressure. 6. New pancreatic tail mass: Suspicious for malignancy. We will check a CA19. He may follow up with Oncology as an outpatient. 7. Diet: Regular. 8. Deep venous thrombosis prophylaxis. On aspirin. 9. Patient warrants observation admission given acute syncope requiring monitoring and serial troponins. /[id number]/MODL MTDD
[2016-11-13 18:14] LABS: COLOR YELLOW; LEUKOCYTE ESTERASE,URINE NEGATIVE (NEGATIVE); NITRITE,URINE NEGATIVE (NEGATIVE)
[2016-11-13 18:34] LABS: MUCUS TRACE /lpf (NONE-1+)
[2016-11-13] MEDS: BACLOFEN 10 MG TAB PO SCH (19:21)
[2016-11-13] MEDS: DICLOXACILLIN NA 500 MG CAP PO SCH (19:21)
[2016-11-13] MEDS ORDERED: ASPIRIN 325 MG TAB PO SCH (21:00)
[2016-11-14] MEDS: BACLOFEN 10 MG TAB PO SCH (00:17)
[2016-11-14] MEDS: DICLOXACILLIN NA 500 MG CAP PO SCH ×3 (00:17→14:04)
[2016-11-14 05:02] LABS: ANION GAP 9 mEq/L (8-16); CALCIUM 8.3 mg/dL (8.5-10.4); CARBON DIOXIDE 23 mEq/l (22-31); CHLORIDE 104 mEq/L (97-110); GLOMERULAR FILTRATION RATE > 60; GLUCOSE 83 mg/dL (70-100); POTASSIUM 4.4 mEq/L (3.5-5.2); SODIUM 136 mEq/L (134-144)
--- NOTE | 2016-11-14 09:11 | CPEKG ---
Heart Rate: 61 RR Interval: 984 P-R Interval: 172 QRSD Interval: 116 QT Interval: 428 QTC Interval: 431 P [place]: 54 QRS [place]: -37 T Wave [place]: 69 EKG Severity - ABNORMAL ECG - EKG Impression: SINUS RHYTHM EKG Impression: INCOMPLETE LEFT BUNDLE BRANCH BLOCK Electronically Signed For: Rolo Flores 14-Nov-2016 09:12:54
[2016-11-14] MEDS ORDERED: FERROUS SULFATE 325 MG TAB PO SCH (12:00)
[2016-11-14] MEDS ORDERED: METOPROLOL SUCCINATE XR 50 MG TAB PO SCH (12:00)
[2016-11-14] MEDS ORDERED: ATORVASTATIN CALCIUM 20 MG TAB PO SCH (12:00)
--- NOTE | 2016-11-14 13:42 | ECHO ---
[id number] + + [address] : : [place] [address] : : [phone] + + Adult Echocardiographic Report + + :Name: JAC QUIÑONEZ MStudy Date: 11/14/2016 11:12 AM : : Hospital Admission Number: [id number] Loc ation: 212: :: 1935 Gender: Male Height: 66 in : :Age: 81 yrs Race: WH Weight: 192 lb : :Reason For Study: Murmur with syncope : : BSA: 2.0 me ters2 : :History: Recent knee replacement : + + MMode/2D Measurements \T\ Calculations LVIDd: 5.0 cm EDV(Teich): 118.0 ml Ao root diam: 3.3 cm LVOT diam: 1.9 cm LA dimension: 4.0 cm LVOT area: 2.9 cm2 Normal Measurement Values: + + :LVIDd (3.5-5.7cm) IVSd (0.6-1.1cm) LVPWd (0.6-1.1cm) Aortic Root (2.0-3.7cm)Left Atrium (1.5-4.0cm): :LV Vol(d) (76-115ml) LV Vol(s) (29-48ml) Ejec Fraction (50-65%)PV Rocky (0.6- 1.2m/s) TV Rocky (0.4-1.0m/s) : :MV E Rocky (0.8-1.0m/s)MV A Rocky (0.3-1.0m/s)LVOT Rocky (0.7-1.2m/s) Asc Ao Rocky ( 0.9-1.8m/s) : + + Doppler Measurements \T\ Calculations MV E max rocky: Ao mean PG: LV V1 max: SV(LVOT): 102.2 cm/sec 16.1 mmHg 123.6 cm/sec 77.1 ml MV A max rocky: Ao V2 mean: LV V1 max P.0 cm/sec 190.0 cm/sec 6.1 mmHg MV E/A: 0.87 Ao V2 VTI: 56.9 cm LV V1 mean P.5 mmHg BENSON(I,D): 1.4 cm2 LV V1 mean: 89.2 cm/sec LV V1 VTI: 26.7 cm TR max rocky: 287.8 cm/sec TR max P.1 mmHg RAP systole: 5.0 mmHg RVSP(TR): 38.1 mmHg Left Ventricle The left ventricle is normal in size. There is mild concentric left ventricular hypertrophy. Left ventricular systolic function is normal. There is Doppler evidence for diastolic dysfunction. No regional wall motion abnormalities noted. Right Ventricle The right ventricle is normal in size and function. Atria The left atrial size is normal. Right atrial size is normal. The interatrial septum is intact with no evidence for an atrial septal defect. Mitral Valve The mitral valve is normal in structure and function. There is mild mitral annular calcification. There is no evidence of mitral valve prolapse. There is no mitral valve stenosis. There is no mitral regurgitation noted. Tricuspid Valve Normal tricuspid valve. There is mild tricuspid regurgitation. Aortic Valve AV moderate sclerosis. The aortic valve is trileaflet. Mild valvular aortic stenosis. Trace to mild aortic regurgitation. Pulmonic Valve The pulmonic valve is normal in structure and function. Trace pulmonic valvular regurgitation. Great Vessels The aortic root is normal size. Pericardium/Pleural Trace pericardial effusion vs. fat pad. Conclusion A complete two-dimensional transthoracic echocardiogram was performed (2D, M-mode, Doppler and color flow Doppler). Left ventricular systolic function and size are normal. There is mild concentric left ventricular hypertrophy. There is Doppler evidence for diastolic dysfunction. Normal LV wall motion. Mild calcific aortic stenosis with mild AR. Mild mitral annular calcification. Mild tricuspid regurgitation. Normal estimated RVSP. Final Reading Physician: Nat Burroughs signed on 11/14/2016 01:40 PM Ordering Physician: Kristie Aguirre Performed By: Jacinta Moreland RDCS
[2016-11-14] MEDS ORDERED: NS 500 ML IV ONE ×2 (14:48→14:55)
[2016-11-14 15:39] VITALS: BP 144/61; PULSE 84; RESP 24; TEMP 97.8; O2SAT 94
--- NOTE | 2016-11-15 10:28 | GDS ---
[f rep st] DISCHARGE SUMMARY DISCHARGE DIAGNOSES: 1. Syncope. 2. Murmur with mild aortic stenosis by echo. 3. Hypoxemia with negative CT angiogram for pulmonary embolism. 4. Recent knee surgery. 5. Pancreatic mass suspicious for pancreatic cancer. HISTORY: The patient is an 81-year-old male who had multiple episodes of syncope. He has not been eating or drinking well since his recent knee arthroplasty. He passed out while on the toilet after urinating and having a bowel movement. This was likely vasovagal. Echo was unremarkable as discus sed above. He was monitored on telemetry without incident. He was found to be hypoxemic and home O 2 was recommended. Incidentally noted on a CT angiogram for PE is a pancreatic mass concerning for pancreatic cancer. CA 19-9 is pending at discharge. Outpatient PET/CT is recommended and further followup with Oncolog y to work this up as an outpatient. The patient is aware of this finding at the time of discharge. DISCHARGE MEDICATIONS: Please see computer record for full detailed list. There are no new medicat ions given at the time of hospital discharge. ADDITIONAL DISCHARGE INSTRUCTIONS: 1. Outpatient followup to work up pancreatic mass. 2. Home oxygen 24/ unless room-air oxygen saturations become greater than 90%. The patient was seen and examined by me on the day of discharge. /[id number]/MODL
== END 2016-11-14 17:49 | disposition home or self-care (01) ==
LOC: INTOOBSV 15:51 → F2W 18:12
PROVIDERS: ADMIT Internal Medicine; ATTEND Internal Medicine
PROC: 3E0337Z Introduction of Electrolytic and Water Balance Substance into Peripheral Vein, Percutaneous Approach (ICD-10-PCS; principal; 2016-11-13)
DX: R55 Syncope and collapse (principal); K86.9 Disease of pancreas, unspecified; E86.9 Volume depletion, unspecified; R01.1 Cardiac murmur, unspecified; I35.0 Nonrheumatic aortic (valve) stenosis; R09.02 Hypoxemia; E78.5 Hyperlipidemia, unspecified; I10 Essential (primary) hypertension; G47.30 Sleep apnea, unspecified; G81.91 Hemiplegia, unspecified affecting right dominant side; N40.0 Benign prostatic hyperplasia without lower urinary tract symptoms; Z79.2 Long term (current) use of antibiotics; Z87.891 Personal history of nicotine dependence; Z96.652 Presence of left artificial knee joint
CPT/HCPCS: 71010; 71275; 93005; 93306; 96360; 99285; G0378; Q9967; 86301-90

== ENCOUNTER 2016-11-27 14:58 | Emergency (ER) | payer OTHER ==
--- NOTE | 2016-11-27 15:11 | CPEKG ---
Heart Rate: 58 RR Interval: 1034 P-R Interval: 176 QRSD Interval: 110 QT Interval: 424 QTC Interval: 417 P [place]: 37 QRS [place]: -41 T Wave [place]: 51 EKG Severity - ABNORMAL ECG - EKG Impression: SINUS RHYTHM EKG Impression: INCOMPLETE LEFT BUNDLE BRANCH BLOCK Electronically Signed By: Edil Borja 27-Nov-2016 20:59:28
[2016-11-27 15:19] VITALS: RESP 16
[2016-11-27] MEDS ORDERED: NS 1,000 ML IV ONE (16:29)
--- NOTE | 2016-11-27 16:29 | EDPHY ---
HPI/HX/ROS/PE/MDM Narrative: CHIEF COMPLAINT: Syncope HISTORY OF PRESENT ILLNESS: The patient is an 81-year-old male presenting with syncopal episode today.The patient was evaluated two weeks ago after a similar syncopal episode. He had an ECHO done at that time and was monitored with no arrhythmia. He was told the cause of syncope was likely due to dehydration. Today, the patient did not get out of bed until 2pm, this is unusual per . Patient had a recent knee replacement and tells me he was awake, and reading in bed. The patient went downstairs to eat his first meal of the day. When he sat down to eat he felt diaphoretic and dizzy. reports he was pale and clammy and passed out. and daughter were not able to lay patient down onto the ground. He regained consciousness briefly, then again passed out. These occured while sleeping. states he was very pale and unresponsive. Pulse oxygen at home was 92% today. He denies chest pain, palpitations, or shortness of breath prior to the event. The patient felt fine before bed last night. No nausea, vomiting, or diarrhea. Of note, the patient recently had left knee surgery. states he has not been drinking or staying hydrated. Patient also recently diagnosed with a pancreatic mass. He has appt with oncology in several days. Denies abdominal pain, nausea, vomiting. REVIEW OF SYSTEMS: Aside from elements discussed in the HPI, a comprehensive 10-point review of systems was reviewed and is negative. PAST MEDICAL HISTORY: Cervical spine surgery with resulting right sided paralysis, LLE neuropathy, Right TKA, HTN, Hypercholesteremia. SOCIAL HISTORY: , lives at home with . VITAL SIGNS: Reviewed by me GENERAL: Resting comfortably in no respiratory distress. Appears sleepy. HEENT: Atraumatic. Eyes: No icterus, no injection. Mouth: slightly dry mucous membranes. No erythema or lesions. Neck: supple with no adenopathy. LUNGS: Clear to auscultation bilaterally, no wheezes, rhonchi or rales. CARDIAC: Regular rate and rhythm, no rubs, murmurs or gallops. ABDOMEN: Soft, nontender, nondistended, bowel sounds normal. BACK: No CVA tenderness. EXTREMITIES: Well healing incision across left knee. NEURO: Alert and oriented, grossly nonfocal. SKIN: Warm and dry, no rash. Pale appearing. PSYCHIATRIC: Normal mentation, no agitation. ED Course: Patient presents with syncopal episode this morning. This is the patient's second episode in two weeks. He was seen here two weeks ago after the first syncope. UA at that time showed elevated specific gravity. Patient was told symptoms likely due to dehydration. Today patient had syncopal episode at 2pm just before eating his first meal of the day. Plan to check EKG, lab work, UA, and chest x-ray. Unable to place peripheral IV. Patient had PICC line placed. The 12 lead EKG was interpreted by myself: Sinus rhythm, LBBB. No changes from previous EKG. IV fluids administered for dehydration. H and H stable from prior. Sodium slightly low. Troponin negative. 1950: I reevaluated the patient. He is much more alert, feels well. We discussed readmission to hospital for further cardiac monitoring. We discussed importance of remaining hydrated. Patient would prefer to be discharged home. Orthostatic vital signs are normal. comfortable taking patient home. MDM: Diff dx of patient syncope considered including but not limited to cardiac causes, arrhythmias, dehydration, anemia, vasovagal episode, seizure, stroke, electrolyte abnormalities. - Data Points Laboratory Results: Laboratory Results 11/27/16 18:26 11/27/16 18:26 Medications Given: Discontinued Medications Sodium Chloride (Ns) 1,000 mls @ 0 mls/hr IV ONCE ONE; Wide Open PRN Reason: Protocol Stop: 11/27/16 16:30 Last Admin: 11/27/16 18:29 Dose: 1,000 mls General Time Seen by Provider: 11/27/16 15:55 Initial Vital Signs: Initial Vital Signs Temperature (C) 36.5 C 11/27/16 15:17 Heart Rate 56 L 11/27/16 15:17 Respiratory Rate 16 11/27/16 15:17 Blood Pressure 131/61 H 11/27/16 15:17 O2 Sat (%) 98 11/27/16 15:17 O2 Delivery Mode Nasal Cannula O2 (L/minute) 2 Allergies/Adverse Reactions: No Known Allergies Allergy (Verified 11/13/16 13:53) Home Medications: Medication Instructions Recorded Baclofen [Baclofen 10 mg (*)] 10 mg PO BID@1700,2300 10/31/16 Dicloxacillin Sodium [Dynapen 500 500 mg PO Q6H 10/31/16 MG (*)] Gabapentin [Neurontin 300 MG (*)] 300 mg PO DAILY@1700 10/31/16 Metoprolol Succinate Xr [Toprol Xl 50 mg PO DAILY@1200 10/31/16 50 mg (*)] Simvastatin [Zocor] 40 mg PO DAILY@1200 10/31/16 Acetaminophen [Tylenol 325mg (*)] 650 mg PO Q6HRS PRN 11/13/16 Aspirin [Aspirin 325 mg (*)] 325 mg PO HS 11/13/16 Ferrous Sulfate [Ferrous Sulf 325 650 mg PO DAILY@1200 11/13/16 MG (*)] Gabapentin [Neurontin 300 MG (*)] 600 mg PO DAILY@2300 11/13/16 Herbals/Supplements -Info Only 1 ea PO DAILY 11/13/16 Departure - Departure Disposition: Home, Routine, Self-Care Clinical Impression: Syncope Qualifiers: Syncope type: unspecified Qualified Code(s): R55 - Syncope and collapse Condition: Good Instructions: Syncope (ED) Additional Instructions: Drink plenty of fluids. Followup with your primary care physician as needed. Return to the Emergency Department if you develop chest pain, shortness of breath, lightheadedness, new, or worsening symptoms. Referrals: Dontae Ferguson MD [Primary Care Provider] - As per Instructions Chuy Salas MD [Medical Doctor] - As per Instructions (Please follow up with Dr. Salas as soon as possible for further evaluation of your fainting episodes.) Report Scribed for: Rose Preciado Report Scribed by: Jennifer Sawyer Date of Report: 11/27/16 Time of Report: 16:29 Physician Review and Approval Statement: Portions of this note were transcribed by a medical malpractice paralegal. I personally performed a history, physical exam, medical decision making, and confirmed accuracy of information the transcribed note.
[2016-11-27] MEDS ORDERED: ALTEPLASE 2 MG VIAL IVP PRN (16:59)
[2016-11-27 18:32] VITALS: TEMP 98.4
[2016-11-27 18:41] LABS: % IMMATURE GRANULYOCYTES 0.5 % (0.0-1.1); ABSOLUTE IMMATURE GRANULOCYTES 0.05 10^3/uL (0.00-0.10); ADD DIFF? NO; ADD MORPH? NO; ADD SCAN? NO; ATYPICAL LYMPHOCYTE FLAG 0 (0-99); FRAGMENT RBC FLAG 0 (0-99); HEMATOCRIT 30.7 % (40.0-51.0); HEMOGLOBIN 10.1 g/dL (13.7-17.5); LEFT SHIFT FLG 0 (0-99); LIPEMIA HEMOLYSIS FLAG 80 (0-99); MEAN CELL HEMOGLOBIN 31.3 pg (27.9-34.1); MEAN CELL HEMOGLOBIN CONCENTR. 32.9 g/dL (32.4-36.7); MEAN PLATELET VOLUME 9.2 fL (8.7-11.7); PLATELET CLUMPS FLAG 0 (0-99); PLATELET COUNT 372 10^3/uL (150-400); RED BLOOD CELL COUNT 3.23 10^6/uL (4.40-6.38); RED CELL DISTRIBUTION WIDTH 13.2 % (11.5-15.2)
[2016-11-27 19:00] LABS: ANION GAP 8 mEq/L (8-16); CALCIUM 8.7 mg/dL (8.5-10.4); CARBON DIOXIDE 25 mEq/l (22-31); CHLORIDE 98 mEq/L (97-110); GLOMERULAR FILTRATION RATE > 60; GLUCOSE 99 mg/dL (70-100); POTASSIUM 4.8 mEq/L (3.5-5.2); SODIUM 131 mEq/L (134-144)
[2016-11-27 19:11] LABS: TROPONIN I < 0.012 ng/mL (0-0.034)
[2016-11-27 22:39] VITALS: BP 132/66; PULSE 74; O2SAT 98
== END 2016-11-27 22:05 | disposition home or self-care (01) ==
LOC: EDUNIT#
DX: R55 Syncope and collapse (principal); E86.9 Volume depletion, unspecified; I10 Essential (primary) hypertension
CPT/HCPCS: 77001; 93005; 96360; 99284; C1751

== ENCOUNTER 2016-11-29 13:37 | Inpatient (IN) | payer OTHER ==
--- NOTE | 2016-11-29 13:49 | CPEKG ---
Heart Rate: 57 RR Interval: 1053 P-R Interval: 180 QRSD Interval: 112 QT Interval: 440 QTC Interval: 429 P [place]: 55 QRS [place]: -44 T Wave [place]: 48 EKG Severity - ABNORMAL ECG - EKG Impression: SINUS RHYTHM EKG Impression: NONSPECIFIC IVCD WITH LAD Electronically Signed By: Edil Borja 29-Nov-2016 15:27:18
[2016-11-29] MEDS ORDERED: NS 1,000 ML IV ONE (13:51)
--- NOTE | 2016-11-29 14:03 | EDPHY ---
HPI/HX/ROS/PE/MDM Narrative: CHIEF COMPLAINT: Recurrent episodes of syncope HISTORY OF PRESENT ILLNESS: This patient is an 81 year old male presenting with a syncopal episode today. He has been evaluated two prior times for syncopal episodes including two days ago 11/27/16 by myself. Two weeks ago, he was admitted and had an ECHO and further cardiac monitoring. Suspected cause at that time was dehydration. Two days ago following workup for repeat syncopal episode, I offered admission but the patient felt well at that time and wished to be discharged home. Today, he states "this time I'm going to get admitted and see a cork slabs sawyer". He was sitting on the toilet today, to get undressed for the shower, and passed out. He denies hitting his head. Was not urinating or defecating. He states he had eaten some alexi crackers and fruit, and had drank orange juice. He has been eating and drinking normally and attempting to stay hydrated as directed following his prior workups. He feels well currently. No fever, chills, chest pain, shortness of breath, palpitations, vomiting, diarrhea, urinary complaints , headache. Patient denies chest pains, sob, or palpitations prior to his syncopal events. Of note, the patient is 3-4 weeks into his postoperative course following a knee surgery. He is on aspirin only. REVIEW OF SYSTEMS: Aside from elements discussed in the HPI, a comprehensive 10-point review of systems was reviewed and is negative. 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 VITAL SIGNS: Reviewed by me GENERAL: Well-developed, well-nourished, resting comfortably in no respiratory distress. BP 146/58 HEENT: Atraumatic. Eyes: No icterus, no injection. Mouth: dry mucous membranes. No erythema or lesions. Neck: supple with no adenopathy. LUNGS: Clear to auscultation bilaterally, no wheezes, rhonchi or rales. CARDIAC: Regular rate and rhythm, no rubs, murmurs or gallops. ABDOMEN: Soft, nontender, nondistended, bowel sounds normal. BACK: No CVA tenderness. EXTREMITIES: Healing incision over left knee. Slightly swollen, slightly warm. Small amount of drainage from incision. No trauma. No edema. Range of motion is normal throughout. NEURO: Alert and oriented, grossly nonfocal. SKIN: Warm and dry, no rash. PSYCHIATRIC: Normal mentation, no agitation. Portions of this note were transcribed by a medical coder. I personally performed a history, physical exam, medical decision making, and confirmed accuracy of information the transcribed note. ED Course: Patient has required PICC line for IV access on prior visits. Attempts made for IV access; unsuccessful. PICC linen ordered and placed. 81 year old here for 3rd visit after syncopal episodes. Patient does have brief prior of pre-syncopal symptoms (lightheaded, chilled, sweaty, pale). Is at risk for injury from syncope. Is 3 weeks s/p knee replacement. Labs including troponin are normal. CT for PE negative for pulmonary emboli. Of note, recently diagnosed with pancreatic mass; needs workup and has appt scheduled. 17:53 Spoke with hospitalist service. Dr. Diego accepts admission for recurrent syncopal episodes. MDM: Diff dx considered included but not limited to vasovagal syncope, arrhythmia, dehydration, pulmonary emboli, hypoglycemia from insulinoma, metastasis, cardiac causes, and blood loss. - Data Points Imaging Results: Imaging Impressions Chest X-Ray 11/29/16 14:01 Impression: No pneumonia. PICC Line Insertion 11/29/16 14:56 Impression: 5-Kenyan double-lumen peripherally inserted central catheter is ready to use. - - - - - - - - - - - - - - - - - - - - - - - - - - - - - - - - - - - - - - - - - (Cross-cutting measures: Current medications were listed in the medical record , including all known prescriptions, [id number] medications, herbal medications, and nutritional supplements.) CT for PE: Impression: 1. No pulmonary embolism. 2. Clear lungs. 3. No change in nonspecific lytic lesion in the medial cortex of the right anterior third rib, without associated fracture. 4. No change in 3.1 x 3.2 cm pancreatic tail mass. 5. 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 Imaging: Discussed imaging studies w/ band tacker Radiologist, I viewed and interpreted images myself Laboratory Results: Laboratory Results 11/29/16 17:20 11/29/16 16:20 11/29/16 11/29/16 11/29/16 17:20 16:20 16:20 WBC 7.75 10^3/uL 10^3/uL REJ (3.80-9.50) RBC 3.15 10^6/uL L 10^6/uL Not Reported (4.40-6.38) Hgb 9.9 g/dL L g/dL Not Reported (13.7-17.5) Hct 29.9 % L % Not Reported (40.0-51.0) MCV 94.9 fL fL Not Reported (81.5-99.8) MCH 31.4 pg pg Not Reported (27.9-34.1) MCHC 33.1 g/dL g/dL Not Reported (32.4-36.7) RDW 13.2 % % Not Reported (11.5-15.2) Plt Count 319 10^3/uL D 10^3/uL Not Reported (150-400) MPV 9.2 fL fL Not Reported (8.7-11.7) Neut % (Auto) 71.8 % % Not Reported (39.3-74.2) Lymph % (Auto) 19.2 % % Not Reported (15.0-45.0) Arroyo % (Auto) 7.6 % % Not Reported (4.5-13.0) Eos % (Auto) 0.6 % % Not Reported (0.6-7.6) Baso % (Auto) 0.3 % % Not Reported (0.3-1.7) Nucleat RBC Rel Count 0.0 % % Not Reported (0.0-0.2) Absolute Neuts (auto) 5.56 10^3/uL 10^3/uL Not Reported (1.70-6.50) Absolute Lymphs (auto) 1.49 10^3/uL 10^3/uL Not Reported (1.00-3.00) Absolute Monos (auto) 0.59 10^3/uL 10^3/uL Not Reported (0.30-0.80) Absolute Eos (auto) 0.05 10^3/uL 10^3/uL Not Reported (0.03-0.40) Absolute Basos (auto) 0.02 10^3/uL 10^3/uL Not Reported (0.02-0.10) Absolute Nucleated RBC 0.00 10^3/uL 10^3/uL Not Reported (0-0.01) Immature Gran % 0.5 % % Not Reported (0.0-1.1) Immature Gran # 0.04 10^3/uL 10^3/uL Not Reported (0.00-0.10) Sodium 133 mEq/L L mEq/L (134-144) Potassium 4.5 mEq/L mEq/L (3.5-5.2) Chloride 99 mEq/L mEq/L (97-110) Carbon Dioxide 26 mEq/l mEq/l (22-31) Anion Gap 8 mEq/L mEq/L (8-16) BUN 15 mg/dL mg/dL (7-23) Creatinine 1.0 mg/dL mg/dL (0.7-1.3) Estimated GFR > 60 Glucose 114 mg/dL H mg/dL (70-100) Calcium 8.9 mg/dL mg/dL (8.5-10.4) Total Bilirubin 0.3 mg/dL mg/dL (0.1-1.4) Conjugated Bilirubin 0.2 mg/dL mg/dL (0.0-0.5) Unconjugated Bilirubin 0.1 mg/dL mg/dL (0.0-1.1) AST 20 IU/L IU/L (17-59) ALT 26 IU/L IU/L (21-72) Alkaline Phosphatase 86 IU/L IU/L (38-126) Troponin I < 0.012 ng/mL ng/mL (0-0.034) Total Protein 6.1 g/dL L g/dL (6.3-8.2) Albumin 3.2 g/dL L g/dL (3.5-5.0) Lipase 77.0 IU/L IU/L (23-300) Medications Given: Discontinued Medications Sodium Chloride (Ns) 1,000 mls @ 0 mls/hr IV ONCE ONE; Wide Open PRN Reason: Protocol Stop: 11/29/16 13:52 Last Admin: 11/29/16 16:29 Dose: 1,000 mls General Time Seen by Provider: 11/29/16 13:38 Initial Vital Signs: Initial Vital Signs Temperature (C) 36.3 C 11/29/16 13:47 Heart Rate 61 11/29/16 13:47 Respiratory Rate 18 11/29/16 13:47 Blood Pressure 123/63 H 11/29/16 13:47 O2 Sat (%) 91 L 11/29/16 13:47 O2 Delivery Mode Room Air O2 (L/minute) 1 Allergies/Adverse Reactions: No Known Allergies Allergy (Verified 11/13/16 13:53) Home Medications: Medication Instructions Recorded Baclofen [Baclofen 10 mg (*)] 10 mg PO BID@1700,2300 10/31/16 Dicloxacillin Sodium [Dynapen 500 500 mg PO Q6H 10/31/16 MG (*)] Gabapentin [Neurontin 300 MG (*)] 300 mg PO BID@17,23 10/31/16 Metoprolol Succinate Xr [Toprol Xl 50 mg PO DAILY@1200 10/31/16 50 mg (*)] Simvastatin [Zocor] 40 mg PO DAILY@1200 10/31/16 Aspirin [Aspirin 325 mg (*)] 325 mg PO HS 11/13/16 Herbals/Supplements -Info Only 1 ea PO DAILY 11/13/16 Departure - Departure Disposition: [facility] Inpatient Acute Clinical Impression: Pancreatic mass Syncope Qualifiers: Syncope type: unspecified Qualified Code(s): R55 - Syncope and collapse Condition: Fair Report Scribed for: Rose Perciado Report Scribed by: Jyoti Jang Date of Report: 11/29/16 Time of Report: 15:19
[2016-11-29] MEDS ORDERED: ALTEPLASE 2 MG VIAL IVP PRN (14:56)
[2016-11-29 17:01] LABS: ALANINE AMINOTRANSFERASE 26 IU/L (21-72); ALBUMIN 3.2 g/dL (3.5-5.0); ALKALINE PHOSPHATASE 86 IU/L (38-126); ANION GAP 8 mEq/L (8-16); ASPARTATE AMINOTRANSFERASE 20 IU/L (17-59); BILIRUBIN,TOTAL 0.3 mg/dL (0.1-1.4); BILIRUBIN-CONJUGATED 0.2 mg/dL (0.0-0.5); BILIRUBIN-UNCONJUGATED 0.1 mg/dL (0.0-1.1); CALCIUM 8.9 mg/dL (8.5-10.4); CARBON DIOXIDE 26 mEq/l (22-31); CHLORIDE 99 mEq/L (97-110); GLOMERULAR FILTRATION RATE > 60; GLUCOSE 114 mg/dL (70-100); POTASSIUM 4.5 mEq/L (3.5-5.2); SODIUM 133 mEq/L (134-144); TOTAL PROTEIN 6.1 g/dL (6.3-8.2)
[2016-11-29 17:12] LABS: TROPONIN I < 0.012 ng/mL (0-0.034)
[2016-11-29 17:31] LABS: % IMMATURE GRANULYOCYTES 0.5 % (0.0-1.1); ABSOLUTE IMMATURE GRANULOCYTES 0.04 10^3/uL (0.00-0.10); ADD DIFF? NO; ADD MORPH? NO; ADD SCAN? NO; ATYPICAL LYMPHOCYTE FLAG 0 (0-99); FRAGMENT RBC FLAG 0 (0-99); HEMATOCRIT 29.9 % (40.0-51.0); HEMOGLOBIN 9.9 g/dL (13.7-17.5); LEFT SHIFT FLG 0 (0-99); LIPEMIA HEMOLYSIS FLAG 80 (0-99); MEAN CELL HEMOGLOBIN 31.4 pg (27.9-34.1); MEAN CELL HEMOGLOBIN CONCENTR. 33.1 g/dL (32.4-36.7); MEAN CELL VOLUME 94.9 fL (81.5-99.8); MEAN PLATELET VOLUME 9.2 fL (8.7-11.7); PLATELET CLUMPS FLAG 0 (0-99); PLATELET COUNT 319 10^3/uL (150-400); RED BLOOD CELL COUNT 3.15 10^6/uL (4.40-6.38); RED CELL DISTRIBUTION WIDTH 13.2 % (11.5-15.2)
[2016-11-29] MEDS ORDERED: IOPAMIDOL (ISOVUE 370) 100 ML BTL IV ONE (17:31)
[2016-11-29] MEDS ORDERED: ACETAMINOPHEN 325 MG TAB PO PRN (20:55)
[2016-11-29] MEDS ORDERED: ONDANSETRON DISINTEGRATING 4 MG TAB PO PRN (20:55)
[2016-11-29] MEDS ORDERED: ONDANSETRON 4 MG/2 ML VIAL IVP PRN (20:55)
--- NOTE | 2016-11-29 21:37 | GHP ---
[f rep st] HISTORY AND PHYSICAL DATE OF ADMISSION: 11/29/2016 CHIEF COMPLAINT: Syncope. HISTORY OF PRESENT ILLNESS: Mr. Conklin is an 81-year-old male with a history of hypertension, hyperlipidemia, and partial right-sided paralysis who presents to the emergency department with recurrent syncope. He was just admitted to the hospital 2 weeks ago after a syncopal episode. During that time he had a negative cardiac workup including an echocardiogram that showed just mild aortic stenosis and mild left ventricular hypertrophy but no significant valvular dysfunction to explain his syncopal process. A CT PA was negative for pulmonary embolism. He was monitored on telemetry without evidence of bradycardia or recurrent syncope or presyncope. 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 He is awaiting an outpatient appointment at the [facility] for a consultation with Oncology. Prior to entering the hospital, he notes his primary care physician had recently decreased his metoprolol. He had previously been on a dose of 50 mg daily, and he has now been decreased all the way to 12.5 mg daily. He states he got up this morning, had some crackers and juice and then went to the bathroom and sat on the toilet to change clothes. He specifically states he was not having a bowel movement or urinating but simply using the toilet as a seat to change his clothes. While seated, he became diaphoretic and felt clammy. He then began to see stars and felt a little lightheaded. He then had syncope when he tried to get up. This occurred a second time. Paramedics were called. He thinks he was normotensive without bradycardia when the paramedics checked his vital signs. He denies chest pain, shortness of breath, heart palpitations, or headaches prior to the event. He has been told in the past that he was dehydrated as a cause of syncope, and he has been focused on drinking plenty of fluids. He thinks his oral intake has been adequate. In the emergency department here, he had another CT pulmonary angiogram that was again negative for PE. EKG was unchanged from prior. Given his recurrent syncopal episodes, he is admitted to the hospital for further evaluation. PAST MEDICAL HISTORY: 1. Recurrent syncope. 2. Arthritis of the shoulder. 3. Hypertension. 4. Hyperlipidemia. 5. 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 6. History of osteomyelitis on chronic oral antibiotics. PAST SURGICAL HISTORY: Right TKA, left TKA October 2016. Bone spur on T4 complicated by a right-sided paralysis. FAMILY HISTORY: His mother at age 90. SOCIAL HISTORY: The patient lives independently. He is . 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 He is a former smoker. Retired from [employer] (formerly [employer] He denies alcohol or drug use. MEDICATIONS: Please see [facility] for complete updated outpatient medication list. ALLERGIES: No known drug allergies. REVIEW OF SYSTEMS: A 10-point review of systems was performed and is negative except as per HPI. OBJECTIVE: VITAL SIGNS: Temperature 36.6, blood pressure 131/65, heart rate 74 , respiratory rate 18. He is 91% on 1 L of oxygen. GENERAL: Patient is awake , alert, and oriented, in no acute distress. HEENT: Head is atraumatic, normocephalic. Pupils equal, round, react to light. Extraocular muscles are intact. Oropharynx is clear. Mucous members are moist. NECK: Supple. There is no JVD. HEART: Regular rate and rhythm with a 2/6 systolic ejection murmur. LUNGS: Clear to auscultation bilaterally. ABDOMEN: Soft, nondistended, nontender. Normoactive bowel sounds. EXTREMITIES: Without cyanosis, clubbing, or edema. NEUROLOGIC: Grossly nonfocal. He has full muscle strength in all extremities. LABORATORY DATA: CBC reveals a white blood cell count of 7.7, hemoglobin is 9.9 which is stable from his prior baseline levels. Sodium 133. Other electrolytes were normal. Creatinine 1. Glucose 114. LFTs are normal. Troponin is negative. Lipase is 77. Chest x-ray showed no acute cardiopulmonary process. CT pulmonary angiogram is negative for pulmonary embolism. Lungs were clear. There was again noted a nonspecific lytic region in the medial cortex of the right anterior 3rd rib without associated fracture. 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 ASSESSMENT PLAN: Mr. Conklin is an 81-year-old male with a history of hypertension, hyperlipidemia, and recurrent syncope who is admitted to the hospital with another episode of syncope. 1. Recurrent syncope. Previous considerations include volume depletion versus vasovagal events. This could be a neurally mediated syncope. I also considered bradycardia or hypotension in the setting of beta aparna with diaphoresis and clamminess. He does state his prior episodes have occurred after taking his metoprolol. He will be monitored on telemetry. Hold his metoprolol for now. I will order a tilt-table test to see if this gives us any insight into possible vasovagal etiology. We will check a carotid artery ultrasound. Check orthostatic vital signs. Consider an outpatient cardiac event monitor to search for bradycardia as a potential source. 2. Hyperlipidemia. Patient will be continued on his statin. 3. Pancreatic mass. The patient has an outpatient appointment at the [facility]. 4. Hypertension. He is normotensive on arrival. As above, I am going to hold his beta aparna as this could be a potential source of his syncope. 5. deep venous thrombosis prophylaxis. The patient is high risk. We will give Lovenox. 6. CODE STATUS: Patient is full code. DISPOSITION: Patient admitted to observation status. He could be a candidate for discharge tomorrow pending the above workup. /[id number]/MODL MTDD
[2016-11-29] MEDS: DICLOXACILLIN NA 500 MG CAP PO SCH (22:02)
[2016-11-29] MEDS: ASPIRIN 325 MG TAB PO SCH (22:03)
[2016-11-29 22:59] LABS: TROPONIN I 0.049 ng/mL (0-0.034)
[2016-11-30] MEDS: DICLOXACILLIN NA 500 MG CAP PO SCH ×5 (07:17→22:33)
[2016-11-30] MEDS: ENOXAPARIN 40 MG/0.4 ML SYR SC SCH (08:26)
[2016-11-30] MEDS: ATORVASTATIN CALCIUM 20 MG TAB PO SCH (11:47)
--- NOTE | 2016-11-30 17:31 | HOSPPROG ---
Hospitalist Progress Note Assessment/Plan: 81 yo M with PMH of htn, hld presenting with recurrent syncope and generalized weakness # syncope: with recent admission for the same and now recurrent multiple episodes at home prior to admission. Has had downtitration of metoprolol in the setting of this, and now being held altogether. w/u including echo, CTA chest, carotid dopplers unremarkable. Have requested cardiology consultation and will likely require LINQ or other heart monitor placement prior to discharge # generalized weakness: patient with fairly recent L TKA as well as recurrent sycnope as above and now generalized weakness and malaise to the point where it seems he is unable to safely perform his ADLs independently. Will ask for pt/ot to evaluate, CM involved. Patient likely to require snf after dc. # pancreatic mass: recently noted as incidental finding on imaging for syncope, has op f/u scheduled with [facility]. Should he end up having a prolonged IP stay could consider changing this to an IP consultation. # recent TKA: performed on November 07 and with some decline in strength since that time, pt/ot as above # chronic osteomyelitis: continue usual chronic abx # partial right sided paralysis: 2/2 prior cervical surgery # IP status, will need > 48 hours stay for eval/mgmt of above given unsafe for discharge with limited mobility and recurrent syncope Patient new to my care. Old records reviewed and summarized as above. Care plan reviewed with cardiology as above. Subjective: no significant overnight events,paitent remains very weak and exhausted, no chest pain, no recurrent syncope Objective: Vital Signs Temp Pulse Resp BP Pulse Ox 36.6 C 70 18 128/53 H 92 11/30/16 16:00 11/30/16 16:00 11/30/16 16:00 11/30/16 16:00 11/30/16 16:00 11/29/16 11/30/16 12/01/16 05:59 05:59 05:59 Intake Total 1300 Output Total 500 225 Balance 800 -225 awake alert chronically ill appearing anicteric op clear rrr no mrg cta b soft nt nd no cce warm dry well perfused oriented appropriate ICD10 Worksheet Patient Problems: Problems Problem Status Onset Syncope Acute Pancreatic mass Acute Syncope Acute Osteoarthritis of left knee Acute
--- NOTE | 2016-11-30 18:30 | GCON ---
[f rep st] CONSULTATION CARDIOLOGY CONSULTATION DATE OF CONSULTATION: 11/30/2016 REFERRING PHYSICIAN: Brenda Diego MD INDICATION FOR CONSULTATION: Syncope. HISTORY OF PRESENT ILLNESS: The patient is a pleasant 81-year-old gentleman, who has been seen at [facility] for his third time in the past several weeks with an episode of syncope. He has a known history of hypertension, hyperlipidemia, and recently underwent left total knee replacement on November 07, 2016. Several days after his surgery, he had initial episode of syncope while post urinating. He describes the onset of dizziness, lightheadedness, and diaphoresis and seeing stars in front of his eyes prior to losing consciousness. His is a nurse who was with him. At the time, witnessed his syncopal event. She did document a blood pressure of 106/68 but did not obtain a pulse. He was brought to [facility] for further evaluation. He underwent extensive evaluation, including a CTA of the chest, which was negative for pulmonary embolism. Complete 2D echocardiogram was unremarkable. There was a finding of a pancreatic tail mass suspicious for pancreatic malignancy, and he is scheduled for outpatient oncology consultation with Dr. James in approximately 3-4 weeks. After he was discharged home from his initial syncopal events, he had another episode of syncope at home that occurred while he was sitting at the dinner table. Again, his and daughter, who is also a nurse, witnessed this episode. He presented to the ER. His workup was unremarkable, and he was discharged home. He had a third syncopal episode today. He was in the bathroom taking off his clothes to get in the shower when he again had an acute onset of dizziness, lightheadedness, and seeing stars in from his eyes before he lost consciousness. At this point, he was brought to [facility] again for further evaluation. He underwent bilateral carotid Doppler earlier today demonstrating moderate right-sided stenosis and mild left stenosis. He underwent CT of the chest and thorax, which demonstrated no evidence of pulmonary embolism, clear lungs, and no change in a nonspecific lytic lesion in the medial cortex of the right anterior 3rd rib without associated fracture. No change in the pancreatic tail mass measuring 3.1 x 3.2 cm. 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 EKG demonstrates sinus bradycardia at 57 beats per minute with nonspecific interventricular conduction delay and left axis deviation. CT of his head was unremarkable. Currently, at the time of my exam, he is resting comfortably without complaint. REVIEW OF SYSTEMS: 10-point review of systems is negative with the exception of those findings outlined above. 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 PAST SURGICAL HISTORY: Includes right and left total knee replacements, bone spur on T4 complicated by right-sided paralysis. SOCIAL HISTORY: He is . He is originally from [place]. He lives with his , who is a nurse. FAMILY HISTORY: Essentially noncontributory. He has a history of longevity. His mother lived to be 90. PHYSICAL EXAMINATION: VITAL SIGNS: Blood pressure 130/55, heart rate of 82 in sinus rhythm, respiratory rate of 10, oxygen saturation 88% on room air, temperature 37.1. GENERAL: He is awake, alert, oriented, appropriate, in no apparent distress. NECK: There is no evidence of JVP or carotid bruits. LUNGS : Clear to auscultation bilaterally anteriorly and posteriorly. CARDIAC: S1, S2. Regular rate and rhythm. No murmurs, rubs, or gallops. ABDOMEN: Soft, nontender, nondistended. He has no left-sided flank pain to palpation. EXTREMITIES: There is no evidence of cyanosis, clubbing, or edema. DATA: White blood cell count 7.75, hemoglobin 9.1, hematocrit 29.9. Sodium 133 , potassium 4.5, chloride 99, bicarb 26, BUN 15, creatinine 1, glucose 114. Hepatic function essentially normal. Troponin is mildly elevated initially at 0.012, increasing to 0.049, and increasing to 0.086. Lipase is normal at 77. Albumin is low at 3.2. IMPRESSION: Syncope. Syncopal episode is consistent with vasovagal syncope. RECOMMENDATIONS: 1. I have recommended hydration and increased sodium intake. 2. Recommend discontinuing metoprolol completely. 3. Would not recommend tilt-table test at this time because his history is consistent with vasovagal syncope. 4. Recommend completion of his 48-hour Holter monitor. If Holter monitor is unremarkable, would recommend outpatient Zio patch monitor. 5. Mild troponin elevation. Recommend repeat troponin tomorrow morning. If troponin remains elevated, will consider further cardiac risk stratification. 30 minutes spent coordinating patient care /[id number]/MODL JONATHAN
[2016-11-30] MEDS: GABAPENTIN 300 MG CAP PO SCH (22:32)
[2016-11-30] MEDS: ASPIRIN 325 MG TAB PO SCH (22:32)
[2016-11-30] MEDS: BACLOFEN 10 MG TAB PO SCH (22:33)
[2016-12-01] MEDS: DICLOXACILLIN NA 500 MG CAP PO SCH ×4 (05:34→23:10)
[2016-12-01 06:01] LABS: % IMMATURE GRANULYOCYTES 0.3 % (0.0-1.1); ABSOLUTE IMMATURE GRANULOCYTES 0.02 10^3/uL (0.00-0.10); ADD DIFF? NO; ADD MORPH? NO; ADD SCAN? NO; ATYPICAL LYMPHOCYTE FLAG 10 (0-99); FRAGMENT RBC FLAG 0 (0-99); HEMATOCRIT 29.5 % (40.0-51.0); HEMOGLOBIN 9.5 g/dL (13.7-17.5); LEFT SHIFT FLG 0 (0-99); LIPEMIA HEMOLYSIS FLAG 80 (0-99); MEAN CELL HEMOGLOBIN 30.6 pg (27.9-34.1); MEAN CELL HEMOGLOBIN CONCENTR. 32.2 g/dL (32.4-36.7); MEAN CELL VOLUME 95.2 fL (81.5-99.8); MEAN PLATELET VOLUME 9.6 fL (8.7-11.7); PLATELET CLUMPS FLAG 70 (0-99); PLATELET COUNT 268 10^3/uL (150-400); RED CELL DISTRIBUTION WIDTH 13.2 % (11.5-15.2)
[2016-12-01 06:26] LABS: ANION GAP 9 mEq/L (8-16); CALCIUM 8.3 mg/dL (8.5-10.4); CARBON DIOXIDE 27 mEq/l (22-31); CHLORIDE 98 mEq/L (97-110); GLOMERULAR FILTRATION RATE > 60; GLUCOSE 82 mg/dL (70-100); POTASSIUM 3.9 mEq/L (3.5-5.2); SODIUM 134 mEq/L (134-144)
[2016-12-01] MEDS: ENOXAPARIN 40 MG/0.4 ML SYR SC SCH (08:53)
--- NOTE | 2016-12-01 10:13 | PDCARPN ---
Cardiology Progress Note Chief Complaint: syncope Assessment/Plan: Assessment: 81-y/o M with PMH recent R TKR 11/07/16, admitted after 3 episodes of syncope. PMH of htn, dyslipidemia, OA, partial R paralysis 2/2 cervical spine injury, osteomyelitis on chronic suppressive regimen. First syncopal episode occurred several days after surgery while urinating. Noted antecedent LH/dizzy and diaphoresis. This was witnessed by his who checked his BP. After syncope, he presented to ED and had negative CTA of chest and echo was unremarkable. Found to have suspicious mass on pancreatic tail (has OP oncology appt). Discharged to home and proceeded to have another syncopal episode while seated at the dining table. ED workup again unremarkable. Readmitted yesterday after going to bathroom to take a shower. Again preceded by dizziness/LH and "seeing stars." Carotid dopplers have shown moderate R sided disease and no e/o PE again. #. syncope: symptoms strongly suggestive of vasovagal holding BB continue PO hydration and increased salt in alimentation will plan for outpatient 30-day event monitor at time of discharge #. htn: BP appears well controlled despite being off Metoprolol recommend cessation of this Plan: - Liberalize salt - Increase PO fluid consumption to 2000 mL daily - We will set up outpatient Cardionet monitor and cardiology follow up. 12/01/16 10:23 Subjective: No syncope, LH, palpitations. Reviewed/Discussed With: hospitalist Objective: Vital Signs (8 Hrs) Temp Pulse Resp BP Pulse Ox 12/01/16 08:16 97.7 F 77 18 121/48 H 95 12/01/16 04:00 97.4 F 71 16 124/49 H 95 Intake/Output (24 Hrs) 11/30/16 12/01/16 12/02/16 05:59 05:59 05:59 Intake Total 800 Output Total 925 Balance -125 Intake: Oral (ml) 800 Output: Urine (ml) 925 Urinal 925 Other: Intake Quantity Yes Sufficient Number of Voids Urinal 2 Number of Stools Bedside Commode 1 Result Diagrams: 12/01/16 05:45 12/01/16 05:45 Cardiac Labs: reviewed EKG: SR with IVCD (personally interpreted) Telemetry: SR, short bout of AT Echocardiogram: 10/1916: LVEF nl, mild /AR, mild con LVH, DD - Physical Exam Constitutional: no apparent distress Eyes: PERRL Ears, Nose, Mouth, Throat: moist mucous membranes Cardiovascular: regular rate and rhythm, systolic murmur Respiratory: clear to auscultate bilat, no crackles Skin: no rashes, no edema Neurologic: AAOx3 Psychiatric: cooperative, interactive ICD10 Worksheet Patient Problems: Problems Problem Status Onset Syncope Acute Osteoarthritis of left knee Acute Pancreatic mass Acute Syncope Acute
[2016-12-01] MEDS: ATORVASTATIN CALCIUM 20 MG TAB PO SCH (11:44)
--- NOTE | 2016-12-01 13:32 | PDIAF ---
- Diagnosis Diagnosis: recurrent syncope, pancreatic mass, htn, Code Status: Full Code - Medication Management Discharge Medications: Medications to Continue on Transfer Baclofen [Baclofen 10 mg (*)] 10 mg PO BID@1700,2300 10/31/16 [Last Taken ] Dicloxacillin Sodium [Dynapen 500 MG (*)] 500 mg PO Q6H 10/31/16 [Last Taken 06/15] Gabapentin [Neurontin 300 MG (*)] 300 mg PO BID@,10/31/16 [Last Taken 11/28] Metoprolol Succinate Xr [Toprol Xl 50 mg (*)] 50 mg PO DAILY@1200 10/31/16 [ Last Taken 11/28/16] Simvastatin [Zocor] 40 mg PO DAILY@1200 10/31/16 [Last Taken 11/28/16] Aspirin [Aspirin 325 mg (*)] 325 mg PO HS 11/13/16 [Last Taken 11/28/16] Herbals/Supplements -Info Only 1 ea PO DAILY 11/13/16 [Last Taken Unknown] Discharge Medications: Refer to the Discharge Home Medication list for PRN reason. - Orders Services needed: Registered Nurse, Certified Dental Equipment Repairer, Master Procurement Assistant , Physical Therapy, Occupational Therapy Diet Recommendation: no restrictions on diet Diet Texture: Regular Texture Diet - Follow Up Care Current Providers and Referrals: Chuy Salas MD [Medical Doctor] - 12/19/16 2:00 pm Patient,NotPresent [Unknown] - As per Instructions
--- NOTE | 2016-12-01 14:58 | HOSPPROG ---
Hospitalist Progress Note Assessment/Plan: 81-year-old man admitted with recurrent syncope. Evaluation so far has been fairly unremarkable. # recurrent syncope currently on telemetry on sinus rhythm appreciate Cardiology consult who is setting up a monitor to do as an outpatient. Because of his ongoing weakness and failure to thrive he was scheduled to go to [facility] for rehab that will happen on Saturday the meantime he needs ongoing monitoring in the hospital because of recurrent syncope. 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 Weakness and failure to thrive with recurrent syncope. Unclear etiology patient will need outpatient monitor placed he also needs rehab given his decline in function and falls. Objective: Vital Signs Temp Pulse Resp BP Pulse Ox 36.3 C 75 18 114/58 L 94 12/01/16 11:59 12/01/16 11:59 12/01/16 11:59 12/01/16 11:59 12/01/16 11:59 Laboratory Results 12/01/16 05:45 12/01/16 05:45 11/30/16 12/01/16 12/02/16 05:59 05:59 05:59 Intake Total 800 Output Total 925 Balance -125 - Physical Exam Constitutional: chronically ill appearing Eyes: PERRL Cardiovascular: regular rate and rhythym, no murmur, rub, or gallop Respiratory: no respiratory distress Gastrointestinal: normoactive bowel sounds Psychiatric: interacting appropriately ICD10 Worksheet Patient Problems: Problems Problem Status Onset Syncope Acute Pancreatic mass Acute Syncope Acute Osteoarthritis of left knee Acute
[2016-12-01] MEDS: BACLOFEN 10 MG TAB PO SCH ×2 (17:53→23:09)
[2016-12-01] MEDS: GABAPENTIN 300 MG CAP PO SCH ×2 (17:53→23:10)
--- NOTE | 2016-12-01 18:14 | GDS ---
[f rep st] DISCHARGE SUMMARY DIAGNOSES: 1. Recurrent syncope. 2. Arthritis of the shoulder. 3. Hypertension. 4. Dyslipidemia. 5. Partial right-sided paralysis secondary to cervical spine surgery. 6. History of osteomyelitis on chronic oral antibiotics. 7. Pancreatic mass awaiting Oncology followup. PROCEDURES DONE: Carotid Dopplers: Right-sided 50% to 70% luminal stenosis. Less than 50% stenosi s on the left. Head CT: Nothing acute. Chest and thoracic CT angiogram: No pulmonary embolism. PICC line insertion. HOSPITAL COURSE: The patient is an 81-year-old with recurrent syncope. The etiology has been uncle ar. He has had multiple admissions to the emergency department as well as the hospital. Here in [facility] he had no significant arrhythmias and no recurrent syncope. Cardiology was consulted and felt he needed a monitor as an outpatient to see what happens when he has his syncopal events. Reji t will be set up. During his evaluation, he was also noted to have a pancreatic mass and is awaitin g follow up with Oncology for that. He did well in the hospital with no issues. CONDITION ON DISCHARGE: Stable. DISCHARGE VITAL SIGNS,: His heart rate is 75 with a blood pressure of 114/58. DISCHARGE MEDICATIONS: Please see discharge medication form. FOLLOWUP: Followup will be with his primary care provider once he is out of the long term. DISCHARGE: [facility]. He will get a monitor, a [employer] mailed to his , who will place it. Total time spent with patient on day of discharge and coordination of care is 35 minutes. /[id number]/MODL
[2016-12-01] MEDS: ASPIRIN 325 MG TAB PO SCH (20:38)
[2016-12-02] MEDS: DICLOXACILLIN NA 500 MG CAP PO SCH ×4 (06:12→23:34)
[2016-12-02] MEDS: ENOXAPARIN 40 MG/0.4 ML SYR SC SCH (09:01)
--- NOTE | 2016-12-02 11:03 | HOSPPROG ---
Hospitalist Progress Note Assessment/Plan: 81-year-old man admitted with recurrent syncope. Evaluation so far has been fairly unremarkable. # recurrent syncope currently on telemetry on sinus rhythm appreciate Cardiology consult who is setting up a monitor to do as an outpatient. Because of his ongoing weakness and failure to thrive he was scheduled to go to [facility] for rehab that will happen on Saturday the meantime he needs ongoing monitoring in the hospital because of recurrent syncope. 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 continue physical therapy here # hypertension # dyslipidemia # peripheral neuropathy # history of osteomyelitis on long-term oral antibiotics Subjective: No events overnight no dizziness or syncope since admission Objective: Vital Signs Temp Pulse Resp BP Pulse Ox 36.8 C 82 18 110/64 91 L 12/02/16 08:00 12/02/16 08:00 12/02/16 08:00 12/02/16 08:00 12/02/16 08:00 Laboratory Results 12/01/16 05:45 12/01/16 05:45 12/01/16 12/02/16 12/03/16 05:59 05:59 05:59 Intake Total 800 1230 Output Total 925 900 200 Balance -125 330 -200 - Physical Exam Constitutional: no apparent distress Cardiovascular: regular rate and rhythym Respiratory: no respiratory distress, clear to auscultation ICD10 Worksheet Patient Problems: Problems Problem Status Onset Syncope Acute Pancreatic mass Acute Syncope Acute Osteoarthritis of left knee Acute
[2016-12-02] MEDS: ATORVASTATIN CALCIUM 20 MG TAB PO SCH (12:13)
[2016-12-02] MEDS: BACLOFEN 10 MG TAB PO SCH ×2 (17:25→23:34)
[2016-12-02] MEDS: GABAPENTIN 300 MG CAP PO SCH ×2 (17:25→23:33)
[2016-12-02] MEDS: ASPIRIN 325 MG TAB PO SCH (21:16)
[2016-12-03] MEDS: DICLOXACILLIN NA 500 MG CAP PO SCH ×2 (06:16→12:19)
[2016-12-03 07:50] VITALS: TEMP 97.8; O2SAT 92
--- NOTE | 2016-12-03 12:12 | PDIAF ---
- Diagnosis Diagnosis: recurrent syncope, pancreatic mass, htn, Code Status: Full Code - Medication Management Discharge Medications: Medications to Continue on Transfer Baclofen [Baclofen 10 mg (*)] 10 mg PO BID@1700,2300 10/31/16 [Last Taken ] Dicloxacillin Sodium [Dynapen 500 MG (*)] 500 mg PO Q6H 10/31/16 [Last Taken 06/15] Gabapentin [Neurontin 300 MG (*)] 300 mg PO BID@17,23 10/31/16 [Last Taken 11/28] Simvastatin [Zocor] 40 mg PO DAILY@1200 10/31/16 [Last Taken 11/28/16] Aspirin [Aspirin 325 mg (*)] 325 mg PO HS 11/13/16 [Last Taken 11/28/16] Herbals/Supplements -Info Only 1 ea PO DAILY 11/13/16 [Last Taken Unknown] Discharge Medications: Refer to the Discharge Home Medication list for PRN reason. - Orders Services needed: Registered Nurse, Certified [employer]ductors Wafer Breaker, Master Meter Reader Inspector , Physical Therapy, Occupational Therapy Diet Recommendation: no restrictions on diet Diet Texture: Regular Texture Diet - Follow Up Care Current Providers and Referrals: Chuy Salas MD [Medical Doctor] - 12/19/16 2:00 pm Patient,NotPresent [Unknown] - As per Instructions
[2016-12-03] MEDS: ENOXAPARIN 40 MG/0.4 ML SYR SC SCH (12:19)
[2016-12-03] MEDS: ATORVASTATIN CALCIUM 20 MG TAB PO SCH (12:19)
[2016-12-03 12:33] VITALS: BP 113/51; PULSE 71; RESP 20
== END 2016-12-03 14:40 | DRG 312 ==
LOC: EDUNIT# → F2W 20:00 → OBSVTOIN 11-30 11:47
PROVIDERS: ADMIT Hospitalist; ATTEND Hospitalist
PROC: 02HV33Z Insertion of Infusion Device into Superior Vena Cava, Percutaneous Approach (ICD-10-PCS; principal; 2016-11-30)
DX: R55 Syncope and collapse (principal); K86.89 Other specified diseases of pancreas; G62.9 Polyneuropathy, unspecified; I10 Essential (primary) hypertension; R25.1 Tremor, unspecified; E78.5 Hyperlipidemia, unspecified; M19.019 Primary osteoarthritis, unspecified shoulder; M86.60 Other chronic osteomyelitis, unspecified site; Z79.2 Long term (current) use of antibiotics; Z79.82 Long term (current) use of aspirin; Z96.651 Presence of right artificial knee joint
CPT/HCPCS: 97110-GP; 97116-GP; 97162-GP; 97166-GO; 97535-GO; C1751; G0378; J1650; Q9967

== ENCOUNTER 2016-12-10 09:24 | Day surgery (SDC) | payer OTHER ==
[2016-12-10] MEDS ORDERED: LIDOCAINE 1% 2 ML INJ ID PRN (10:31)
[2016-12-10] MEDS ORDERED: LR 1,000 ML IV ONE (10:31)
--- NOTE | 2016-12-10 11:58 | PDGENHP ---
History & Physical Chief Complaint: pancreatic mass History of Present Illness: 81 year old male presents for evaluation of pancreatic mass. Pertinent Past, Social, Family History: PMHx: HTN, osteomyelitis Relevant Physical Exam: HEENT: anicteric. CV: RRR +s1s2. No m/r/g. Lungs: CTAB Cardiorespiratory Assessment: ASA 3. Mall: 2
[2016-12-10] MEDS ORDERED: PROPOFOL/EMULSION 500 MG/50 ML BOTTLE IV ONE (11:59)
--- NOTE | 2016-12-10 11:59 | PDANEPAE ---
ANE History of Present Illness here for EGD/EUS ANE Past Medical History - Cardiovascular History Hx Hypertension: Yes Hx Arrhythmias: No Hx Chest Pain: No Hx Coronary Artery / Peripheral Vascular Disease: No Hx CHF / Valvular Disease: No Hx Palpitations: No Cardiovascular History Comment: pcp monitors bp meds. hyperlipidemia. has stopped metoprolol d/t syncope - Pulmonary History Hx COPD: No Hx Asthma/Reactive Airway Disease: No Hx Recent Upper Respiratory Infection: No Hx Oxygen in Use at Home: Yes Hx Sleep Apnea: Yes Sleep Apnea Screening Result - Last Documented: Positive Pulmonary History Comment: suni positive- hx of using cpap but he has since stopped - Neurologic History Hx Cerebrovascular Accident: No Hx Seizures: No Hx Dementia: No Neurologic History Comment: paralysis to right side after spinal surgery. spinal surgery for numbness and tingling in left hand- when he woke up from anesthesia he was totally paralyzed on right side. neuropathy on left side from toes to armpit - Endocrine History Hx Diabetes: No - Renal History Hx Renal Disorders: Yes Renal History Comment: frequency and urgency. uti 09/2016 - Liver History Hx Hepatic Disorders: No - Neurological & Psychiatric Hx Hx Neurological and Psychiatric Disorders: No - Cancer History Hx Cancer: No - Congenital Disorder History Hx Congenital Disorders: No - GI History Hx Gastrointestinal Disorders: Yes Gastrointestinal History Comment: RECENT DX PANCREATIC MASS. diarrhea uses probiotic. occ incontinence of bowels d/t paralysis - Other Health History Other Health History: wears glasses. bilateral hearing aides. hx of eczema- none currently. flu 2 weeks ago - Chronic Pain History Chronic Pain: Yes (left knee, wrist, right shoulder and low back pain) - Surgical History Prior Surgeries: LT TOTAL KNEE 10/2016. c2 spinal surgery for calcium spur 2006. right tka 2009. herniated disc procedure after water slide accident ANE Review of Systems Review of systems is: negative - Exercise capacity Exercise capacity: <4 METS METS (RN): 4 METS ANE Patient History - Allergies Allergies/Adverse Reactions: No Known Allergies Allergy (Verified 11/13/16 13:53) - Home Medications Home medications: home medication list seen and reviewed Home Medications: Baclofen [Baclofen 10 mg (*)] 10/31/16 [Last Taken 12/09/16 22:30] Dicloxacillin Sodium [Dynapen 500 MG (*)] 10/31/16 [Last Taken 12/10/16 05:30] Gabapentin [Neurontin 300 MG (*)] 10/31/16 [Last Taken 12/09/16 22:30] Simvastatin [Zocor] 10/31/16 [Last Taken 12/09/16 12:00] Herbals/Supplements -Info Only 11/13/16 [Last Taken 12/10/16 05:30] - NPO status NPO Since - Liquids (Date): 12/10/16 NPO Since - Liquids (Time): 05:30 NPO Since - Solids (Date): 12/09/16 NPO Since - Solids (Time): 22:00 - Anes Hx Anes Hx: no prior problems - Smoking Hx Smoking Status: Former smoker - Family Anes Hx Family Hx Anesthesia Complications: none ANE Labs/Vital Signs - Vital Signs Blood Pressure: 139/71 Heart Rate: 665 Respiratory Rate: 15 O2 Sat (%): 94 Height: 167.64 cm Weight: 85.275 kg ANE Physical Exam - Airway Neck exam: FROM Mallampati Score: Class 1 Mouth exam: normal dental/mouth exam - Pulmonary Pulmonary: no respiratory distress - Cardiovascular Cardiovascular: regular rate and rhythym - ASA Status ASA Status: II ANE Anesthesia Plan Anesthesia Plan: GA with mask
[2016-12-10] MEDS ORDERED: NALOXONE HCL 0.4 MG/ML INJ IVP PRN (12:20)
[2016-12-10] MEDS ORDERED: ONDANSETRON 4 MG/2 ML VIAL IVP PRN (12:20)
[2016-12-10] MEDS ORDERED: fentaNYL 100 MCG/2 ML INJ IVP PRN (12:20)
[2016-12-10] MEDS ORDERED: PROPOFOL 200 MG/20 ML VIAL ONE (12:28)
[2016-12-10] MEDS ORDERED: NS 500 ML IV SCH (13:00)
[2016-12-10] MEDS ORDERED: INDOMETHACIN 50 MG SUPP PR PRN (13:00)
[2016-12-10 13:39] VITALS: TEMP 97.5
--- NOTE | 2016-12-10 13:40 | GPN ---
[f rep st] PROCEDURE NOTE DATE OF PROCEDURE: 12/10/2016 PROCEDURE: Esophagogastroduodenoscopy with biopsy, endoscopic ultrasound with fine-needle aspiration. INDICATIONS: The patient is an 81-year-old male who had a recent CT scan which showed a mass lesion in the tail of the pancreas. He presents for further evaluation and possible tissue acquisition. CONSENT: Risks, benefits, and alternatives of the procedure were discussed in great detail with the patient. Risks of infection, bleeding, perforation, sedation, and pancreatitis were discussed. All questions answered. Informed consent was obtained. MEDICATIONS: Propofol. Please see Anesthesia record for details. ESTIMATED BLOOD LOSS: Insignificant. ESOPHAGOGASTROSCOPY EXAMINATION: The Olympus upper endoscope was introduced into the mouth and advanced to esophagus. The proximal, mid, and distal esophagus were normal in appearance. The stomach was entered and closely examined, including retroflexed views of the angularis, cardia and fundus. The patient was noted to have a hiatal hernia. The mucosa in the antrum and body was very erythematous. Biopsies were taken. The duodenal bulb and 2nd portion of the duodenum were normal in appearance. ENDOSCOPIC ULTRASOUND EXAMINATION: The Olympus linear echoendoscope was entered using the mouth and advanced to the second portion of duodenum. The esophagus, stomach, and duodenum were visualized endosonographically. The pancreas was examined from the uncinate process to the tail, where the spleen was seen. The pancreatic parenchyma had hyperechoic foci, as well as several dilated side branches. Close to the tail of the pancreas, a 3 x 3 cm round lesion with indistinct margins was seen. It was located next to the spleen. Doppler was used to rule out intervening vessels. One transgastric pass was made with a ice 25-gauge needle into the lesion. Cytology was present and on preliminary report lymphocytes were seen. Another pass was made, placed directly into the flow cytometry. No liver lesion was noted. The common bile duct was seen without stone or stricture noted. No enlarged periportal lymph node was seen. IMPRESSION: 1. 3 cm lesion adjacent to the tail of the pancreas. FNA performed and lymphocytes seen. Lymphoma? 2. Gastritis. RECOMMENDATIONS: Follow up on biopsy and fine needle aspiration results. 1. Clear liquid diet. 2. Follow up Oncology. 3. Follow up on biopsy and FNA results. /[id number]/MODL MTDD
[2016-12-10 13:47] VITALS: RESP 13
[2016-12-10 14:07] VITALS: BP 120/57; PULSE 66; O2SAT 94
[2016-12-13 10:05] LABS: FINAL DIAGNOSIS See Comments; MICROSCOPIC DESCRIPTION See Comments
== END 2016-12-10 14:20 | disposition home or self-care (01) ==
LOC: FSGY 09:24
PROVIDERS: ATTEND Internal Medicine Gastroenterology
PROC: 0DB68ZX Excision of Stomach, Via Natural or Artificial Opening Endoscopic, Diagnostic (ICD-10-PCS; principal; 2016-12-10 10:30)
PROC: 0F9G4ZX Drainage of Pancreas, Percutaneous Endoscopic Approach, Diagnostic (ICD-10-PCS; principal; 2016-12-10 10:30)
DX: D49.0 Neoplasm of unspecified behavior of digestive system (principal); R93.2 Abnormal findings on diagnostic imaging of liver and biliary tract; K29.70 Gastritis, unspecified, without bleeding; I10 Essential (primary) hypertension; K44.9 Diaphragmatic hernia without obstruction or gangrene; G47.33 Obstructive sleep apnea (adult) (pediatric); Z96.653 Presence of artificial knee joint, bilateral; Z87.891 Personal history of nicotine dependence
CPT/HCPCS: 88184-90; 88185-91; J2704

== ENCOUNTER → 2016-12-24 | Outpatient (CLI) | payer OTHER | LOC: FIMAGING 13:32 | PROVIDERS: ATTEND Internal Medicine Hematology & Oncology | DX: K86.89 Other specified diseases of pancreas (principal) ==